=== PATIENT | male | born 1955 | race African-American/Black ===

== ENCOUNTER 2016-05-27 20:00 | Inpatient (IN) | payer OTHER ==
[2016-05-27 20:44] VITALS: BMI 36.9
--- NOTE | 2016-05-27 20:48 | HP ---
CIWA Score - CIWA Score Nausea/Vomitin-Mild Nausea/No Vomiting Muscle Tremors: 4-Moderate,w/Arms Extend Anxiety: 4-Mod. Anxious/Guarded Agitation: 4-Moderately Restless Paroxysmal Sweats: 1-Minimal Palms Moist Orientation: 3-Disoriented Date>2 days Tacttile Disturbances: 0-None Auditory Disturbances: 0-None Visual Disturbances: 0-None Headache: 2-Mild CIWA-Ar Total Score: 19 Admission [facility] - HPI Chief Complaint: withdrawal sx Allergies/Adverse Reactions: Allergies Allergy/AdvReac Type Severity Reaction Status Date / Time morphine Allergy Verified 05/27/16 20:48 History of Present Illness: 60 years old male with long history of alcohol dependence, hypertension hypercholesterolemia, seizure and depression is admitted to detox patient was treated alcohol intoxication at [facility] today released to [facility] for alcohol detox Exam Limitations: No Limitations - Ebola screening Have you traveled outside of the country in the last 21 days: No Have you had contact with anyone from an Ebola affected area: No Have you been sick,other than usual withdrawal symptoms: No Do you have a fever: No - Review of Systems Constitutional: Chills, Changes in sleep, Weight Stable EENT: reports: Other (eye glasses) Respiratory: reports: No Symptoms reported Cardiac: reports: No Symptoms Reported GI: reports: Nausea, Poor Fluid Intake, Abdominal cramping : reports: No Symptoms Reported Musculoskeletal: reports: Back Pain, Joint Pain, Muscle Pain, Other (knees) Integumentary: reports: No Symptoms Reported Neuro: reports: Seizure (last episode 11/2015), Tremors Endocrine: reports: No Symptoms Reported Hematology: reports: No Symptoms Reported Psychiatric: reports: Judgement Intact, Depressed Other Systems: Reviewed and Negative Patient History - Patient Medical History Hx Anemia: No Hx Asthma: No Hx Chronic Obstructive Pulmonary Disease (COPD): No Hx Cancer: No Hx Cardiac Disorders: No Hx Congestive Heart Failure: No Hx Hypertension: Yes Hx Hypercholesterolemia: Yes Hx Pacemaker: No HX Cerebrovascular Accident: No Hx Seizures: Yes (1984) Hx Dementia: No Hx Diabetes: No Hx Gastrointestinal Disorders: No Hx Liver Disease: No Hx Genitourinary Disorders: No Hx Sexually Transmitted Disorders: No Hx Renal Disease (ESRD): No Hx Thyroid Disease: No Hx Human Immunodeficiency Virus (HIV): No Hx Hepatitis C: No Hx Depression: Yes Hx Suicide Attempt: No Hx Bipolar Disorder: No Hx Schizophrenia: No - Patient Surgical History Past Surgical History: No - PPD History Previous Implant?: Yes Documented Results: Negative w/o proof Implanted On Prior [facility] Admission?: No PPD to be Administered?: Yes - Smoking Cessation Smoking history: Never smoked Have you smoked in the past 12 months: No Cigars Per Day: 0 Hx Chewing Tobacco Use: No Initiated information on smoking cessation: No - Substance & Tx. History Hx Alcohol Use: Yes Hx Substance Use: No Substance Use Type: Alcohol Hx Substance Use Treatment: Yes - Substances Abused Alcohol Route: Oral Frequency: Daily Amount used: keshawn arriaga Age of first use: 12 Date of Last Use: 05/27/16 Family Disease History - Family Disease History Family Disease History: Heart Disease: Brother (2014), Other: Father ( ) , Mother (mental illness) Admission Physical Exam S - Physical General Appearance: Yes: Nourished, Appropriately Dressed, Moderate Distress, Alcohol on Breath, Tremorous, Irritable, Sweating, Anxious HEENTM: Yes: Hearing grossly Normal, Normal ENT Inspection, Normocephalic, Normal Voice Respiratory: Yes: Chest Non-Tender, Lungs Clear, Normal Breath Sounds, No Respiratory Distress, No Accessory Muscle Use Neck: Yes: Supple, Trachea in good position Breast: Yes: Breasts Symetrical Cardiology: Yes: Regular Rhythm, Regular Rate, S1, S2 Abdominal: Yes: Non Tender, Soft Genitourinary: Yes: Within Normal Limits Back: Yes: Normal Inspection Musculoskeletal: Yes: full range of Motion, Gait Steady, Back pain, Muscle Pain (knees) Extremities: Yes: Non-Tender, Tremors, Swelling (knees) Neurological: Yes: Alert, Motor Strength 5/5 (cane), Depressed Affect Integumentary: Yes: Warm Lymphatic: Yes: Within Normal Limits - Diagnostic (1) Alcohol dependence with uncomplicated withdrawal Current Visit: Yes Status: Acute (2) Hypertension Current Visit: Yes Status: Acute Qualifiers: Hypertension type: essential hypertension Qualified Code(s): I10 - Essential (primary) hypertension (3) Seizure Current Visit: Yes Status: Acute Comment: topamax (4) Major depression Current Visit: Yes Status: Suspected Qualifiers: Major depression recurrence: recurrent Active/Remission status: in partial remission Qualified Code(s): F33.41 - Major depressive disorder, recurrent, in partial remission (5) Weakness of lower extremity Current Visit: Yes Status: Chronic Qualifiers: Laterality: bilateral Qualified Code(s): M62.81 - Muscle weakness ( generalized) Comment: cane Cleared for Admission [facility] - Detox or Rehab [facility] Level of Care: Medically Managed Detox Regimen/Protocol: Librium [facility] Breath Alcohol Content Breath Alcohol Content: 0.252 Vital Signs - Vital Signs Vital Signs Refused: No Temperature: 96 F Temperature Source: Oral Pulse Rate: 74 Respiratory Rate: 20 Blood Pressure: 127/75 BP Location: Left Arm Blood Pressure Position: Sitting - Height Height: 5 ft 9 in - Weight Weight: 250 lb Body Mass Index (BMI): 36.9 - Bowel Function Bowel Movement: Yes
[2016-05-27] MEDS ORDERED: LOPERAMIDE HCL 2 MG CAPSULE PO PRN (21:00)
[2016-05-27] MEDS ORDERED: chlordiazePOXIDE HCL 25 MG CAPSULE PO PRN (21:00)
[2016-05-27] MEDS ORDERED: hydrOXYzine PAMOATE 50 MG CAPSULE (FP) PO PRN (21:00)
[2016-05-27] MEDS ORDERED: IBUPROFEN 400 MG TABLET (FP) PO PRN (21:00)
[2016-05-27] MEDS ORDERED: ACETAMINOPHEN 325 MG TABLET (FP) PO PRN (21:00)
[2016-05-27] MEDS ORDERED: MENTHOL/PHENOL 1 EACH UD MM PRN (21:00)
[2016-05-27] MEDS ORDERED: chlordiazePOXIDE HCL 25 MG CAPSULE PO ONE (21:00)
[2016-05-27] MEDS ORDERED: P-EPHED 60MG/TRIPROLIDI 2.5MG TABLET PO PRN (21:00)
[2016-05-27] MEDS ORDERED: MAGNESIUM CITRATE 300 ML BOTTLE PO PRN (21:00)
[2016-05-27] MEDS ORDERED: MAG HYDROX/AL HYDROX/SIMETH 30 ML UNIT-DOSE CUP PO PRN (21:00)
[2016-05-27] MEDS ORDERED: MAGNESIUM HYDROX 2400MG/30ML ORAL SUSPENSION 30 ML CUP PO PRN (21:00)
[2016-05-27] MEDS ORDERED: guaiFENesin/D-METHORPHAN HB 10 ML UNIT-DOSE CUPS PO PRN (21:00)
[2016-05-27] MEDS ORDERED: cloNIDine HCL 0.1 MG TABLET PO PRN (21:12)
[2016-05-27] MEDS: TOPIRAMATE 25 MG TABLET (FP) PO SCH (22:53)
[2016-05-27] MEDS: chlordiazePOXIDE HCL 25 MG CAPSULE PO SCH (22:53)
[2016-05-27] MEDS: THIAMINE HCL 100 MG TABLET (FP) PO SCH (22:53)
[2016-05-27] MEDS: diphenhydrAMINE HCL 50 MG CAPSULE PO PRN (22:54)
[2016-05-27 23:16] LABS: URINE APPEARANCE CLEAR; URINE BILIRUBIN NEGATIVE (NEGATIVE); URINE BLOOD NEGATIVE (NEGATIVE); URINE COLOR YELLOW; URINE GLUCOSE (UA) NEGATIVE (NEGATIVE); URINE KETONE NEGATIVE (NEGATIVE); URINE LEUK ESTERASE NEGATIVE (NEGATIVE); URINE NITRITE NEGATIVE (NEGATIVE); URINE PROTEIN NEGATIVE (NEGATIVE); URINE UROBILINOGEN NEGATIVE E.U./dl (0.2-1.0)
[2016-05-28] MEDS: chlordiazePOXIDE HCL 25 MG CAPSULE PO SCH ×4 (06:04→22:26)
[2016-05-28] MEDS: TOPIRAMATE 25 MG TABLET (FP) PO SCH ×3 (06:30→22:55)
--- NOTE | 2016-05-28 07:33 | CONSULT ---
[id number] [facility] Identifying data: This is 60 years old male with history ob Bipolar disorder, history of psychiatric hospitalization, intoxicated with: Alcohol Substance Abuse History: - Smoking Cessation. Smoking history: Never smoked. Have you smoked in the past 12 months: No. Cigars Per Day: 0. Hx Chewing Tobacco Use: No. Initiated information on smoking cessation: No. - Substance & Tx. History. Hx Alcohol Use: Yes. Hx Substance Use: No. Substance Use Type : Alcohol. Hx Substance Use Treatment: Yes. - Substances Abused. Alcohol. Route: Oral. Frequency: Daily. Amount used: keshawn arriaga. Age of first use : 12. Date of Last Use: 05/27/16 Medical History: Asthma, HTN, Seizure history Psychiatric History: Sanya haider tocarry Bipolar dsioprdsdr with nost recent psychiatric admission at [facility] on 2014 fro safety, reports currently on: Trazodone 100mg poqs. Zoloft 50mg poqd. Thopamax 25mg po tid Physical/Sexual Abuse/Trauma History: Denies Additional Comment: Trazodone 100mg poqs. Zoloft 50mg poqd. Thopamax 25mg po tid Mental Status Exam - Mental Status Exam Alert and Oriented to: Person Cognitive Function: Fair Patient Appearance: Unkempt Mood: Sad Affect: Flat Patient Behavior: Sedated Speech Pattern: Delayed Voice Loudness: Mildly Soft/Quiet Thought Process: Circumstantial Thought Disorder: Being Controlled Hallucinations: Denies Suicidal Ideation: Denies Homicidal Ideation: Denies Insight/Judgement: Fair Sleep: Difficulty falling asleep Appetite: Fair Muscle strength/Tone: Mild Hypotonicity Gait/Station: Shuffling Additional Comments: Trazodone 100mg poqs. Zoloft 50mg poqd. Thopamax 25mg po tid Psychiatric Findings - Problem List ([place] 1, 2,3) (1) Alcohol dependence with uncomplicated withdrawal Current Visit: Yes Status: Acute (2) Major depression Current Visit: Yes Status: Suspected Qualifiers: Major depression recurrence: recurrent Active/Remission status: in partial remission Qualified Code(s): F33.41 - Major depressive disorder, recurrent, in partial remission - Initial Treatment Plan Initial Treatment Plan: Trazodone 100mg poqs. Zoloft 50mg poqd. Thopamax 25mg po tid
--- NOTE | 2016-05-28 10:03 | PN ---
S CIWA - CIWA Score Nausea/Vomitin Muscle Tremors: 3 Anxiety: 3 Agitation: 3 Paroxysmal Sweats: 1-Minimal Palms Moist Orientation: 0-Oriented Tacttile Disturbances: 1-Very Mild Itch/Numbness Auditory Disturbances: 1-Very Mild Visual Disturbances: 1-Very Mild Sensitivity Headache: 2-Mild CIWA-Ar Total Score: 18 [facility] Progress Note (SOAP) Subjective: ALERT,IRRITABLE,ANXIOUS,INTERRUPTED SLEEP,TREMOR Objective: 05/28/16 10:01 Vital Signs Temperature 97.8 F 05/28/16 06:11 Pulse Rate 89 05/28/16 09:59 Respiratory Rate 20 05/28/16 09:59 Blood Pressure 140/83 05/28/16 09:59 O2 Sat by Pulse Oximetry (%) EKG NR,NORMAL ECG Laboratory Last Values Urine Color Yellow 05/27/16 22:00 Urine Appearance Clear 05/27/16 22:00 Urine pH 5.0 (5.0-8.0) 05/27/16 22:00 Ur Specific [place] 1.020 (1.001-1.035) 05/27/16 22:00 Urine Protein Negative (NEGATIVE) 05/27/16 22:00 Urine Glucose (UA) Negative (NEGATIVE) 05/27/16 22:00 Urine Ketones Negative (NEGATIVE) 05/27/16 22:00 Urine Blood Negative (NEGATIVE) 05/27/16 22:00 Urine Nitrite Negative (NEGATIVE) 05/27/16 22:00 Urine Bilirubin Negative (NEGATIVE) 05/27/16 22:00 Urine Urobilinogen Negative E.U./dl (0.2-1.0) 05/27/16 22:00 Ur Leukocyte Esterase Negative (NEGATIVE) 05/27/16 22:00 LABS PENDING Assessment: 05/28/16 10:02 WITHDRAWAL SYMPTOM Plan: CONTINUE DETOX
[2016-05-28] MEDS: PRENATAL VITAMINS W/ FOLIC ACID TABLET (FP) PO SCH (10:32)
[2016-05-28] MEDS: amLODIPine BESYLATE 10 MG TABLET (FP) PO SCH (10:32)
[2016-05-28] MEDS: SERTRALINE HCL 50 MG TABLET (FP) PO SCH (10:32)
[2016-05-28] MEDS: HYDROCHLOROTHIAZIDE 25 MG TABLET (FP) PO SCH (10:32)
[2016-05-28 11:27] LABS: MCH 26.3 pg (25.7-33.7); MCHC 32.8 g/dl (32.0-35.9); MEAN PLT VOLUME 7.9 fl (7.5-11.1); PLATELET COUNT 205 K/MM3 (134-434); RDW 15.8 % (11.9-15.9); WHITE BLOOD COUNT 5.9 K/mm3 (4.0-10.0)
[2016-05-28 11:59] LABS: ALBUMIN 3.2 g/dl (3.4-5.0); ALK PHOS 75 U/L (45-117); ANION GAP 11 (8-16); BILIRUBIN,TOTAL 0.3 mg/dL (0.2-1.0); CALCIUM 8.1 mg/dL (8.5-10.1); CO2 29 mmol/L (21-32); CREATININE 0.9 mg/dL (0.7-1.3); GLUCOSE,RANDOM 96 mg/dL (74-106); SGOT/AST 25 U/L (15-37); SGPT/ALT 28 U/L (12-78); TOT PROT 6.6 g/dl (6.4-8.2)
[2016-05-28] MEDS ORDERED: TOPIRAMATE 25 MG TABLET (FP) PO SCH (14:00)
[2016-05-28] MEDS: diphenhydrAMINE HCL 50 MG CAPSULE PO PRN (22:26)
[2016-05-28] MEDS: THIAMINE HCL 100 MG TABLET (FP) PO SCH (22:26)
[2016-05-28] MEDS: POTASSIUM CHLORIDE TABS 20 MEQ TABLET.ER (FP) PO SCH (22:26)
[2016-05-28] MEDS: traZODone HCL 100 MG TABLET (FP) PO SCH (22:26)
[2016-05-28] MEDS ORDERED: BACITRACIN 0.9 GM PACKET TP PRN (23:17)
--- NOTE | 2016-05-28 23:28 | PN ---
[facility] Progress Note Note: K+=3.2 K-Dur 20 meq BID ordered. Re-order K+ levels Will continue to monitor.
[2016-05-29] MEDS: chlordiazePOXIDE HCL 25 MG CAPSULE PO SCH ×3 (05:39→16:53)
[2016-05-29] MEDS: TOPIRAMATE 25 MG TABLET (FP) PO SCH ×3 (05:40→22:18)
[2016-05-29] MEDS: SERTRALINE HCL 50 MG TABLET (FP) PO SCH (10:26)
[2016-05-29] MEDS: amLODIPine BESYLATE 10 MG TABLET (FP) PO SCH (10:26)
[2016-05-29] MEDS: POTASSIUM CHLORIDE TABS 20 MEQ TABLET.ER (FP) PO SCH ×2 (10:26→22:18)
[2016-05-29] MEDS: HYDROCHLOROTHIAZIDE 25 MG TABLET (FP) PO SCH (10:26)
[2016-05-29] MEDS: PRENATAL VITAMINS W/ FOLIC ACID TABLET (FP) PO SCH (10:26)
--- NOTE | 2016-05-29 15:54 | PN ---
[facility] CIWA - CIWA Score Nausea/Vomitin-No Nausea/No Vomiting Muscle Tremors: 3 Anxiety: 3 Agitation: 3 Paroxysmal Sweats: 3 Orientation: 0-Oriented Tacttile Disturbances: 0-None Auditory Disturbances: 0-None Visual Disturbances: 0-None Headache: 0-None Present CIWA-Ar Total Score: 12 S Progress Note (SOAP) Subjective: SWEATING,ANXIETY,TREMORS,INTERRUPTED SLEEP,RESTLESS Objective: 05/29/16 15:53 Vital Signs - 8 hr 05/29/16 10:39 Temperature 97.0 F L Pulse Rate 90 Respiratory 20 Rate Blood Pressure 113/78 Laboratory Tests 05/27/16 05/28/16 05/28/16 22:00 07:30 07:30 WBC 5.9 RBC 4.74 Hgb 12.4 Hct 38.0 MCV 80.0 MCHC 32.8 RDW 15.8 Plt Count 205 MPV 7.9 Sodium 148 H Potassium 3.2 L Chloride 108 H Carbon Dioxide 29 Anion Gap 11 BUN 16 Creatinine 0.9 Creat Clearance w eGFR > 60 Random Glucose 96 Calcium 8.1 L Total Bilirubin 0.3 AST 25 ALT 28 Alkaline Phosphatase 75 Total Protein 6.6 Albumin 3.2 L Urine Color Yellow Urine Appearance Clear Urine pH 5.0 Ur Specific [place] 1.020 Urine Protein Negative Urine Glucose (UA) Negative Urine Ketones Negative Urine Blood Negative Urine Nitrite Negative Urine Bilirubin Negative Urine Urobilinogen Negative Ur Leukocyte Esterase Negative RPR Titer 05/28/16 07:30 WBC RBC Hgb Hct MCV MCHC RDW Plt Count MPV Sodium Potassium Chloride Carbon Dioxide Anion Gap BUN Creatinine Creat Clearance w eGFR Random Glucose Calcium Total Bilirubin AST ALT Alkaline Phosphatase Total Protein Albumin Urine Color Urine Appearance Urine pH Ur Specific [place] Urine Protein Urine Glucose (UA) Urine Ketones Urine Blood Urine Nitrite Urine Bilirubin Urine Urobilinogen Ur Leukocyte Esterase RPR Titer Nonreactive LABS NOTED,K+ 3.2 K-DUR STARTED Assessment: 05/29/16 15:53 WITHDRAWAL SX. HYPOKALEMIA Plan: CONTINUE DETOX
[2016-05-29] MEDS: chlordiazePOXIDE 5 MG CAPSULE PO SCH (22:17)
[2016-05-29] MEDS: THIAMINE HCL 100 MG TABLET (FP) PO SCH (22:17)
[2016-05-29] MEDS: traZODone HCL 100 MG TABLET (FP) PO SCH (22:18)
[2016-05-29] MEDS: diphenhydrAMINE HCL 50 MG CAPSULE PO PRN (22:19)
[2016-05-30] MEDS: chlordiazePOXIDE 5 MG CAPSULE PO SCH ×3 (05:35→17:48)
[2016-05-30] MEDS: TOPIRAMATE 25 MG TABLET (FP) PO SCH ×3 (05:36→22:45)
--- NOTE | 2016-05-30 10:27 | PN ---
[facility] Progress Note (SOAP) Subjective: SWEATING,INTERRUPTED SLEEP,RESTLESS. Objective: 05/30/16 10:26 Vital Signs - 8 hr 05/30/16 05/30/16 05/30/16 03:30 06:13 10:12 Temperature 97.8 F 97.3 F L Pulse Rate 81 83 Respiratory 18 18 18 Rate Blood Pressure 120/79 128/87 Laboratory Tests 05/27/16 05/28/16 05/28/16 22:00 07:30 07:30 WBC 5.9 RBC 4.74 Hgb 12.4 Hct 38.0 MCV 80.0 MCHC 32.8 RDW 15.8 Plt Count 205 MPV 7.9 Sodium 148 H Potassium 3.2 L Chloride 108 H Carbon Dioxide 29 Anion Gap 11 BUN 16 Creatinine 0.9 Creat Clearance w eGFR > 60 Random Glucose 96 Calcium 8.1 L Total Bilirubin 0.3 AST 25 ALT 28 Alkaline Phosphatase 75 Total Protein 6.6 Albumin 3.2 L Urine Color Yellow Urine Appearance Clear Urine pH 5.0 Ur Specific [place] 1.020 Urine Protein Negative Urine Glucose (UA) Negative Urine Ketones Negative Urine Blood Negative Urine Nitrite Negative Urine Bilirubin Negative Urine Urobilinogen Negative Ur Leukocyte Esterase Negative RPR Titer 05/28/16 07:30 WBC RBC Hgb Hct MCV MCHC RDW Plt Count MPV Sodium Potassium Chloride Carbon Dioxide Anion Gap BUN Creatinine Creat Clearance w eGFR Random Glucose Calcium Total Bilirubin AST ALT Alkaline Phosphatase Total Protein Albumin Urine Color Urine Appearance Urine pH Ur Specific [place] Urine Protein Urine Glucose (UA) Urine Ketones Urine Blood Urine Nitrite Urine Bilirubin Urine Urobilinogen Ur Leukocyte Esterase RPR Titer Nonreactive LABS NOTED,K-DUR GIVEN Assessment: 05/30/16 10:26 WITHDRAWAL SX. Plan: CONTINUE DETOX
[2016-05-30] MEDS: SERTRALINE HCL 50 MG TABLET (FP) PO SCH (10:38)
[2016-05-30] MEDS: PRENATAL VITAMINS W/ FOLIC ACID TABLET (FP) PO SCH (10:38)
[2016-05-30] MEDS: amLODIPine BESYLATE 10 MG TABLET (FP) PO SCH (10:38)
[2016-05-30] MEDS: POTASSIUM CHLORIDE TABS 20 MEQ TABLET.ER (FP) PO SCH ×2 (10:38→22:45)
[2016-05-30] MEDS: HYDROCHLOROTHIAZIDE 25 MG TABLET (FP) PO SCH (10:39)
[2016-05-30] MEDS: chlordiazePOXIDE HCL 10 MG CAPSULE PO SCH (22:45)
[2016-05-30] MEDS: traZODone HCL 100 MG TABLET (FP) PO SCH (22:45)
[2016-05-30] MEDS: THIAMINE HCL 100 MG TABLET (FP) PO SCH (22:45)
[2016-05-31] MEDS: chlordiazePOXIDE HCL 10 MG CAPSULE PO SCH ×2 (05:46→11:42)
[2016-05-31] MEDS: TOPIRAMATE 25 MG TABLET (FP) PO SCH ×2 (05:47→16:29)
[2016-05-31 09:44] VITALS: BP 112/73; PULSE 91; TEMP 96.3
[2016-05-31] MEDS: POTASSIUM CHLORIDE TABS 20 MEQ TABLET.ER (FP) PO SCH (11:41)
[2016-05-31] MEDS: SERTRALINE HCL 50 MG TABLET (FP) PO SCH (11:41)
[2016-05-31] MEDS: PRENATAL VITAMINS W/ FOLIC ACID TABLET (FP) PO SCH (11:41)
[2016-05-31] MEDS: HYDROCHLOROTHIAZIDE 25 MG TABLET (FP) PO SCH (11:41)
[2016-05-31] MEDS: amLODIPine BESYLATE 10 MG TABLET (FP) PO SCH (11:41)
--- NOTE | 2016-05-31 15:34 | DS ---
[facility] Detox Discharge Summary Admission Date: 05/27/16 Discharge Date: 05/31/16 - History Present History: Alcohol Dependence Additional Comments: ADVISED PT. TO FOLLOW-UP WITH PMD / REHAB MEDICAL PROVIDER AFTER DETOX DISCHARGE FOR GENERAL MEDICAL ASSESSMENT. Pertinent Past History: Hypertension, History of seizures. - Physical Exam Results Vital Signs: Vital Signs Temperature 96.3 F L 05/31/16 09:44 Pulse Rate 91 H 05/31/16 09:44 Respiratory Rate 18 05/31/16 09:44 Blood Pressure 112/73 05/31/16 09:44 O2 Sat by Pulse Oximetry (%) Pertinent Admission Physical Exam Findings: WITHDRAWAL SYMPTOMS. Laboratory Last Values WBC 5.9 K/mm3 (4.0-10.0) 05/28/16 07:30 RBC 4.74 M/mm3 (4.00-5.60) 05/28/16 07:30 Hgb 12.4 GM/dL (11.7-16.9) 05/28/16 07:30 Hct 38.0 % (35.4-49) 05/28/16 07:30 MCV 80.0 fl (80-96) 05/28/16 07:30 MCHC 32.8 g/dl (32.0-35.9) 05/28/16 07:30 RDW 15.8 % (11.9-15.9) 05/28/16 07:30 Plt Count 205 K/MM3 (134-434) 05/28/16 07:30 MPV 7.9 fl (7.5-11.1) 05/28/16 07:30 Sodium 148 mmol/L (136-145) H 05/28/16 07:30 Potassium 3.8 mmol/L (3.5-5.1) 05/30/16 08:00 Chloride 108 mmol/L (98-107) H 05/28/16 07:30 Carbon Dioxide 29 mmol/L (21-32) 05/28/16 07:30 Anion Gap 11 (8-16) 05/28/16 07:30 BUN 16 mg/dL (7-18) 05/28/16 07:30 Creatinine 0.9 mg/dL (0.7-1.3) 05/28/16 07:30 Creat Clearance w eGFR > 60 (>60) 05/28/16 07:30 Random Glucose 96 mg/dL (74-106) 05/28/16 07:30 Calcium 8.1 mg/dL (8.5-10.1) L 05/28/16 07:30 Total Bilirubin 0.3 mg/dL (0.2-1.0) 05/28/16 07:30 AST 25 U/L (15-37) 05/28/16 07:30 ALT 28 U/L (12-78) 05/28/16 07:30 Alkaline Phosphatase 75 U/L (45-117) 05/28/16 07:30 Total Protein 6.6 g/dl (6.4-8.2) 05/28/16 07:30 Albumin 3.2 g/dl (3.4-5.0) L 05/28/16 07:30 Urine Color Yellow 05/27/16 22:00 Urine Appearance Clear 05/27/16 22:00 Urine pH 5.0 (5.0-8.0) 05/27/16 22:00 Ur Specific [place] 1.020 (1.001-1.035) 05/27/16 22:00 Urine Protein Negative (NEGATIVE) 05/27/16 22:00 Urine Glucose (UA) Negative (NEGATIVE) 05/27/16 22:00 Urine Ketones Negative (NEGATIVE) 05/27/16 22:00 Urine Blood Negative (NEGATIVE) 05/27/16 22:00 Urine Nitrite Negative (NEGATIVE) 05/27/16 22:00 Urine Bilirubin Negative (NEGATIVE) 05/27/16 22:00 Urine Urobilinogen Negative E.U./dl (0.2-1.0) 05/27/16 22:00 Ur Leukocyte Esterase Negative (NEGATIVE) 05/27/16 22:00 RPR Titer Nonreactive (NONREACTIVE) 05/28/16 07:30 LABS NOTED. - Treatment Hospital Course: Detox Protocol Followed, Detoxed Safely, Responded well, Discharged Condition Good, Rehab Referral Accepted - Medication Discharge Medications: Ambulatory Orders Amlodipine Besylate [Norvasc -] 10 mg PO DAILY 05/27/16 Hydrochlorothiazide 25 mg PO DAILY 05/27/16 Sertraline HCl [Zoloft -] 50 mg PO DAILY 05/27/16 Topiramate [Topamax -] 25 mg PO TID #90 tablet 05/28/16 Trazodone HCl 100 mg PO HS #30 tablet 05/28/16 - Diagnosis (1) Alcohol dependence with uncomplicated withdrawal Current Visit: Yes Status: Acute (2) Hypertension Current Visit: Yes Status: Chronic Qualifiers: Hypertension type: essential hypertension Qualified Code(s): I10 - Essential (primary) hypertension (3) Seizure Current Visit: Yes Status: Chronic (4) Weakness of lower extremity Current Visit: Yes Status: Chronic Qualifiers: Laterality: bilateral Qualified Code(s): M62.81 - Muscle weakness ( generalized) (5) Major depression Current Visit: Yes Status: Suspected Qualifiers: Major depression recurrence: recurrent Active/Remission status: in partial remission Qualified Code(s): F33.41 - Major depressive disorder, recurrent, in partial remission - AMA Did Patient Leave Against Medical Advice: No
== END 2016-05-31 14:40 | disposition other institution (70) | DRG 775 ==
LOC: YASAS 20:00 → Y3N 21:39
PROVIDERS: ADMIT Internal Medicine; ATTEND Internal Medicine
PROC: HZ2ZZZZ Detoxification Services for Substance Abuse Treatment (ICD-10-PCS; principal; 2016-05-27)
DX: F10.230 Alcohol dependence with withdrawal, uncomplicated (principal); F33.41 Major depressive disorder, recurrent, in partial remission; E87.6 Hypokalemia; E78.00 Pure hypercholesterolemia, unspecified; I10 Essential (primary) hypertension; M62.81 Muscle weakness (generalized); G40.909 Epilepsy, unspecified, not intractable, without status epilepticus; Z59.0 Homelessness
CPT/HCPCS: 36415; 80053; 81003; 84132; 85027; 86593; 93005; 93010

== ENCOUNTER 2016-05-31 13:23 | Inpatient (IN) | payer OTHER ==
[2016-05-31 14:40] VITALS: BMI 37.3
--- NOTE | 2016-05-31 15:58 | HP ---
[facility] Rehab Assess/Revision - Admission History Admitted to Rehab from: [facility] Date of Admission to Rehab: 05/31/16 - Vital signs Vital Signs: Vital Signs Period Temp Pulse Resp BP Sys/Hylton Pulse Ox Last 24 Hr 97.7 F-97.7 F 92-92 20-20 109-109/68-68 - Findings Detox History & Physical reviewed: Yes Concur with findings: Yes
[2016-05-31] MEDS ORDERED: MAGNESIUM CITRATE 300 ML BOTTLE PO PRN (16:00)
[2016-05-31] MEDS ORDERED: guaiFENesin/D-METHORPHAN HB 10 ML UNIT-DOSE CUPS PO PRN (16:00)
[2016-05-31] MEDS ORDERED: IBUPROFEN 400 MG TABLET (FP) PO PRN (16:00)
[2016-05-31] MEDS ORDERED: MAG HYDROX/AL HYDROX/SIMETH 30 ML UNIT-DOSE CUP PO PRN (16:00)
[2016-05-31] MEDS ORDERED: ACETAMINOPHEN 325 MG TABLET (FP) PO PRN (16:00)
[2016-05-31] MEDS ORDERED: MENTHOL/PHENOL 1 EACH UD MM PRN (16:00)
[2016-05-31] MEDS ORDERED: LOPERAMIDE HCL 2 MG CAPSULE PO PRN (16:00)
[2016-05-31] MEDS ORDERED: MAGNESIUM HYDROX 2400MG/30ML ORAL SUSPENSION 30 ML CUP PO PRN (16:00)
[2016-05-31] MEDS: TOPIRAMATE 25 MG TABLET (FP) PO SCH (22:27)
[2016-05-31] MEDS: traZODone HCL 100 MG TABLET (FP) PO SCH (22:27)
[2016-05-31] MEDS: THIAMINE HCL 100 MG TABLET (FP) PO SCH (22:27)
[2016-06-01] MEDS: TOPIRAMATE 25 MG TABLET (FP) PO SCH ×3 (06:38→21:43)
[2016-06-01] MEDS: HYDROCHLOROTHIAZIDE 25 MG TABLET (FP) PO SCH (10:07)
[2016-06-01] MEDS: PRENATAL VITAMINS W/ FOLIC ACID TABLET (FP) PO SCH (10:07)
[2016-06-01] MEDS: SERTRALINE HCL 50 MG TABLET (FP) PO SCH (10:07)
[2016-06-01] MEDS: amLODIPine BESYLATE 10 MG TABLET (FP) PO SCH (10:07)
--- NOTE | 2016-06-01 18:52 | HP ---
Psychiatrist Admission - Data Date of interview: 06/01/16 Admission source: Transfer from [address] [place] [address] Identifying data: First admission to [address] for this 60 y/o AA male transitioning to rehabilitation treatment for alcohol dependence (detox completed on [address] [place] [address]).Patient is ,a father of four,homeless,unemployed and supported on Welfare. Medical History: Significant for a history of carpal tunnel syndrome,low back pain,benign prostatic hyperplasia (BPH),hypercholesterolemia and withdrawal- related seizures. Psychiatric History: Patient admits to a history of 4-5 psychiatric hospitalizations in his lifetime.He is known to [facility] (most recent admission),[facility] ([place]) and [facility] in [place].Diagnosed with MDD and Bipolar Disorder.Mr Funk gets his outpatient psychiatric services at [facility] (Dr Will Miller) in [facility].No reported history of suicide attempts.Medications consist of zoloft 50 mg/daily + trazodone 50 mg/hs + topamax 25 mg po tid. Physical/Sexual Abuse/Trauma History: Patient denies. Additional Comment: - Smoking Cessation. Smoking history: Never smoked. Have you smoked in the past 12 months: No. Cigars Per Day: 0. Hx Chewing Tobacco Use: No. Initiated information on smoking cessation: No. - Substance & Tx. History. Hx Alcohol Use: Yes. Hx Substance Use: No. Substance Use Type: Alcohol. Hx Substance Use Treatment: Yes. - Substances Abused. Alcohol. Route: Oral. Frequency: Daily. Amount used: gallon volka. Age of first use: 12. Date of Last Use: 05/27/16. Confirmed by the patient. Vital Signs: Vital Signs - 24 hr 06/01/16 06/01/16 06/01/16 03:30 06:30 10:00 Temperature 97.8 F Pulse Rate 94 H 86 Respiratory 18 20 Rate Blood Pressure 119/71 131/73 Allergies/Adverse Reactions: Allergies Allergy/AdvReac Type Severity Reaction Status Date / Time morphine Allergy Intermediate Rash Verified 05/31/16 14:12 - Substance Abuse/Tx History Hx Alcohol Use: Yes Hx Substance Use: Yes (alcohol) Substance Use Type: Alcohol Hx Substance Use Treatment: Yes - Admission Criteria Previous failed treatment: Yes Poor recovery environment: Yes Comorbidities: Yes Lacks judgement: Yes Mental Status Exam - Mental Status Exam Alert and Oriented to: Time, Place, Person Cognitive Function: Good Patient Appearance: Well Groomed (short,obese) Mood: Hopeful, Euthymic Affect: Appropriate, Normal Range Patient Behavior: Talkative, Appropriate, Cooperative Speech Pattern: Clear, Appropriate Voice Loudness: Normal Thought Process: Intact, Goal Oriented Thought Disorder: Not Present Hallucinations: Denies Suicidal Ideation: Denies Homicidal Ideation: Denies Insight/Judgement: Fair Sleep: Fair Appetite: Good Muscle strength/Tone: Normal Gait/Station: Normal Psychiatric Findings - Problem List ([place] 1, 2,3) (1) Alcohol dependence Current Visit: Yes Status: Acute (2) Major depression Current Visit: Yes Status: Chronic Qualifiers: Major depression recurrence: recurrent Active/Remission status: in partial remission Qualified Code(s): F33.41 - Major depressive disorder, recurrent, in partial remission (3) Bipolar disorder Current Visit: Yes Status: Chronic Comment: By history. (4) Hypertension Current Visit: Yes Status: Chronic Qualifiers: Hypertension type: essential hypertension Qualified Code(s): I10 - Essential (primary) hypertension (5) Weakness of lower extremity Current Visit: No Status: Chronic Qualifiers: Laterality: bilateral Qualified Code(s): M62.81 - Muscle weakness ( generalized) Comment: [place] (6) Insomnia Current Visit: Yes Status: Acute - Initial Treatment Plan Initial Treatment Plan: Psychoeducation.Support groups.Medications as per orders.Side effects/benefits discussed with patient.He is in agreement with this careplan.Monitor progress.
[2016-06-01] MEDS: THIAMINE HCL 100 MG TABLET (FP) PO SCH (21:42)
[2016-06-01] MEDS: traZODone HCL 100 MG TABLET (FP) PO SCH (21:42)
[2016-06-02] MEDS: TOPIRAMATE 25 MG TABLET (FP) PO SCH ×3 (06:24→21:26)
[2016-06-02] MEDS ORDERED: hydrOXYzine PAMOATE 50 MG CAPSULE (FP) PO PRN (09:40)
[2016-06-02] MEDS: SERTRALINE HCL 50 MG TABLET (FP) PO SCH (09:45)
[2016-06-02] MEDS: HYDROCHLOROTHIAZIDE 25 MG TABLET (FP) PO SCH (09:45)
[2016-06-02] MEDS: PRENATAL VITAMINS W/ FOLIC ACID TABLET (FP) PO SCH (09:45)
[2016-06-02] MEDS: amLODIPine BESYLATE 10 MG TABLET (FP) PO SCH (09:45)
[2016-06-02] MEDS: THIAMINE HCL 100 MG TABLET (FP) PO SCH (21:26)
[2016-06-02] MEDS: traZODone HCL 100 MG TABLET (FP) PO SCH (21:26)
[2016-06-02] MEDS: P-EPHED 60MG/TRIPROLIDI 2.5MG TABLET PO PRN (22:32)
[2016-06-03] MEDS: P-EPHED 60MG/TRIPROLIDI 2.5MG TABLET PO PRN (06:10)
[2016-06-03] MEDS: TOPIRAMATE 25 MG TABLET (FP) PO SCH ×3 (06:47→21:40)
[2016-06-03] MEDS: PRENATAL VITAMINS W/ FOLIC ACID TABLET (FP) PO SCH (09:44)
[2016-06-03] MEDS: HYDROCHLOROTHIAZIDE 25 MG TABLET (FP) PO SCH (09:44)
[2016-06-03] MEDS: amLODIPine BESYLATE 10 MG TABLET (FP) PO SCH (09:44)
[2016-06-03] MEDS: SERTRALINE HCL 50 MG TABLET (FP) PO SCH (09:44)
[2016-06-03] MEDS: traZODone HCL 100 MG TABLET (FP) PO SCH (21:40)
[2016-06-03] MEDS: THIAMINE HCL 100 MG TABLET (FP) PO SCH (21:40)
[2016-06-04] MEDS: TOPIRAMATE 25 MG TABLET (FP) PO SCH ×3 (06:24→21:46)
[2016-06-04] MEDS: P-EPHED 60MG/TRIPROLIDI 2.5MG TABLET PO PRN ×2 (06:25→21:47)
[2016-06-04] MEDS: PRENATAL VITAMINS W/ FOLIC ACID TABLET (FP) PO SCH (10:06)
[2016-06-04] MEDS: HYDROCHLOROTHIAZIDE 25 MG TABLET (FP) PO SCH (10:06)
[2016-06-04] MEDS: amLODIPine BESYLATE 10 MG TABLET (FP) PO SCH (10:06)
[2016-06-04] MEDS: SERTRALINE HCL 50 MG TABLET (FP) PO SCH (10:07)
[2016-06-04] MEDS: THIAMINE HCL 100 MG TABLET (FP) PO SCH (21:46)
[2016-06-04] MEDS: traZODone HCL 100 MG TABLET (FP) PO SCH (21:46)
[2016-06-05] MEDS: TOPIRAMATE 25 MG TABLET (FP) PO SCH ×3 (06:10→21:31)
[2016-06-05] MEDS: P-EPHED 60MG/TRIPROLIDI 2.5MG TABLET PO PRN ×2 (06:11→14:26)
[2016-06-05] MEDS: PRENATAL VITAMINS W/ FOLIC ACID TABLET (FP) PO SCH (09:49)
[2016-06-05] MEDS: amLODIPine BESYLATE 10 MG TABLET (FP) PO SCH (09:49)
[2016-06-05] MEDS: HYDROCHLOROTHIAZIDE 25 MG TABLET (FP) PO SCH (09:49)
[2016-06-05] MEDS: SERTRALINE HCL 50 MG TABLET (FP) PO SCH (09:49)
[2016-06-05] MEDS: THIAMINE HCL 100 MG TABLET (FP) PO SCH (21:31)
[2016-06-05] MEDS: traZODone HCL 100 MG TABLET (FP) PO SCH (21:31)
[2016-06-06] MEDS: TOPIRAMATE 25 MG TABLET (FP) PO SCH ×3 (06:23→21:31)
[2016-06-06] MEDS: P-EPHED 60MG/TRIPROLIDI 2.5MG TABLET PO PRN (06:24)
[2016-06-06] MEDS: amLODIPine BESYLATE 10 MG TABLET (FP) PO SCH (10:52)
[2016-06-06] MEDS: PRENATAL VITAMINS W/ FOLIC ACID TABLET (FP) PO SCH (10:52)
[2016-06-06] MEDS: SERTRALINE HCL 50 MG TABLET (FP) PO SCH (10:52)
[2016-06-06] MEDS: HYDROCHLOROTHIAZIDE 25 MG TABLET (FP) PO SCH (10:52)
[2016-06-06] MEDS: THIAMINE HCL 100 MG TABLET (FP) PO SCH (21:31)
[2016-06-06] MEDS: traZODone HCL 100 MG TABLET (FP) PO SCH (21:31)
[2016-06-07] MEDS: TOPIRAMATE 25 MG TABLET (FP) PO SCH ×3 (06:29→21:51)
[2016-06-07] MEDS: SERTRALINE HCL 50 MG TABLET (FP) PO SCH (10:03)
[2016-06-07] MEDS: PRENATAL VITAMINS W/ FOLIC ACID TABLET (FP) PO SCH (10:03)
[2016-06-07] MEDS: HYDROCHLOROTHIAZIDE 25 MG TABLET (FP) PO SCH (10:03)
[2016-06-07] MEDS: amLODIPine BESYLATE 10 MG TABLET (FP) PO SCH (10:03)
[2016-06-07] MEDS: THIAMINE HCL 100 MG TABLET (FP) PO SCH (21:51)
[2016-06-07] MEDS: P-EPHED 60MG/TRIPROLIDI 2.5MG TABLET PO PRN (21:53)
[2016-06-07] MEDS: traZODone HCL 100 MG TABLET (FP) PO SCH (21:59)
[2016-06-08] MEDS: TOPIRAMATE 25 MG TABLET (FP) PO SCH ×3 (06:47→21:24)
[2016-06-08] MEDS: PRENATAL VITAMINS W/ FOLIC ACID TABLET (FP) PO SCH (09:57)
[2016-06-08] MEDS: HYDROCHLOROTHIAZIDE 25 MG TABLET (FP) PO SCH (09:57)
[2016-06-08] MEDS: amLODIPine BESYLATE 10 MG TABLET (FP) PO SCH (09:57)
[2016-06-08] MEDS: SERTRALINE HCL 50 MG TABLET (FP) PO SCH (09:57)
[2016-06-08] MEDS: P-EPHED 60MG/TRIPROLIDI 2.5MG TABLET PO PRN (10:00)
[2016-06-08] MEDS: traZODone HCL 100 MG TABLET (FP) PO SCH (21:24)
[2016-06-08] MEDS: THIAMINE HCL 100 MG TABLET (FP) PO SCH (21:24)
[2016-06-09] MEDS: TOPIRAMATE 25 MG TABLET (FP) PO SCH ×3 (06:14→21:08)
[2016-06-09] MEDS: amLODIPine BESYLATE 10 MG TABLET (FP) PO SCH (09:58)
[2016-06-09] MEDS: HYDROCHLOROTHIAZIDE 25 MG TABLET (FP) PO SCH (09:58)
[2016-06-09] MEDS: SERTRALINE HCL 50 MG TABLET (FP) PO SCH (09:58)
[2016-06-09] MEDS: PRENATAL VITAMINS W/ FOLIC ACID TABLET (FP) PO SCH (09:58)
[2016-06-09] MEDS: P-EPHED 60MG/TRIPROLIDI 2.5MG TABLET PO PRN (09:59)
[2016-06-09] MEDS: traZODone HCL 100 MG TABLET (FP) PO SCH (21:08)
[2016-06-09] MEDS: diphenhydrAMINE HCL 50 MG CAPSULE PO PRN (21:08)
[2016-06-09] MEDS: THIAMINE HCL 100 MG TABLET (FP) PO SCH (21:08)
[2016-06-10] MEDS: TOPIRAMATE 25 MG TABLET (FP) PO SCH ×3 (06:28→21:34)
[2016-06-10] MEDS: SERTRALINE HCL 50 MG TABLET (FP) PO SCH (10:12)
[2016-06-10] MEDS: HYDROCHLOROTHIAZIDE 25 MG TABLET (FP) PO SCH (10:12)
[2016-06-10] MEDS: PRENATAL VITAMINS W/ FOLIC ACID TABLET (FP) PO SCH (10:12)
[2016-06-10] MEDS: amLODIPine BESYLATE 10 MG TABLET (FP) PO SCH (10:12)
[2016-06-10] MEDS: P-EPHED 60MG/TRIPROLIDI 2.5MG TABLET PO PRN (14:15)
[2016-06-10] MEDS: THIAMINE HCL 100 MG TABLET (FP) PO SCH (21:34)
[2016-06-10] MEDS: traZODone HCL 100 MG TABLET (FP) PO SCH (21:34)
[2016-06-10] MEDS: diphenhydrAMINE HCL 50 MG CAPSULE PO PRN (21:35)
[2016-06-11] MEDS: P-EPHED 60MG/TRIPROLIDI 2.5MG TABLET PO PRN (06:17)
[2016-06-11] MEDS: TOPIRAMATE 25 MG TABLET (FP) PO SCH ×2 (06:18→15:32)
[2016-06-11 07:19] VITALS: TEMP 97.5
--- NOTE | 2016-06-11 07:39 | PN ---
[facility] Progress Note Note: PATIENT ASSESSED AFTER FALLING IN HIS ROOM. HE STATED HE GOT OUT OF BED AND BECOME DIZZY. HE FELL AND HIT HIS HEAD ON THE SIDE OF THE BED. MEMBER IS ALERT , PERRLA, EOMI. HE DENIES N/V AND CHANGES IN VISION. HE REPORTS PAIN TO THE BACK OF HIS HEAD. MACHINE PECAN PICKER GAVE REPORT TO DR. PALOMINO AT [facility] ER. PT. TO BE TRANSFERRED TO THE ER FOR FURTHER EVALUATION. FALL PROTOCOL 1 INITIATED.
[2016-06-11 10:25] VITALS: BP 108/73; PULSE 83
[2016-06-11] MEDS: SERTRALINE HCL 50 MG TABLET (FP) PO SCH (12:00)
[2016-06-11] MEDS: HYDROCHLOROTHIAZIDE 25 MG TABLET (FP) PO SCH (12:00)
[2016-06-11] MEDS: PRENATAL VITAMINS W/ FOLIC ACID TABLET (FP) PO SCH (12:00)
[2016-06-11] MEDS: amLODIPine BESYLATE 10 MG TABLET (FP) PO SCH (12:00)
== END 2016-06-11 19:21 | disposition short-term general hospital (02) | DRG 772 ==
LOC: YASAS 13:23 → Y3W 13:24
PROVIDERS: ADMIT Psychiatry & Neurology Psychiatry; ATTEND Psychiatry & Neurology Psychiatry
PROC: HZ42ZZZ Group Counseling for Substance Abuse Treatment, Cognitive-Behavioral (ICD-10-PCS; principal; 2016-05-31)
DX: F10.20 Alcohol dependence, uncomplicated (principal); F33.41 Major depressive disorder, recurrent, in partial remission; F31.9 Bipolar disorder, unspecified; I10 Essential (primary) hypertension; M62.81 Muscle weakness (generalized); G47.00 Insomnia, unspecified; N40.0 Benign prostatic hyperplasia without lower urinary tract symptoms; E78.00 Pure hypercholesterolemia, unspecified; M54.5 Low back pain; Z86.69 Personal history of other diseases of the nervous system and sense organs; Z59.0 Homelessness; S09.90XA Unspecified injury of head, initial encounter; W18.39XA Other fall on same level, initial encounter; Y93.89 Activity, other specified; Y92.230 Patient room in hospital as the place of occurrence of the external cause

== ENCOUNTER 2016-06-11 09:05 | Inpatient (IN) | payer OTHER ==
--- NOTE | 2016-06-11 09:26 | PDOC ---
History of Present Illness <Lance Arredondo - Last Filed: 06/11/16 11:50> - History of Present Illness Initial Comments: 06/11/16 09:40 The patient is a 60 year old male, with a significant past medical history of alcohol detoxification (05/26/16), who presents to the emergency department via ems from [facility] s/p fall from bed this morning after possible syncopal episode. The patient states he was getting out of bed when he began to feel lightheaded and dizzy. The patient states he can not recall falling to the floor , however, he woke up on the floor. The patient reports experiencing syncope in the past. The patient reports experiencing alcohol withdrawals in April. The patient is a poor historian. He denies chest pain, shortness of breath, headache and dizziness. He denies fever, chills, nausea, vomit, diarrhea and constipation. He denies dysuria, frequency, urgency and hematuria. Allergies: morphine Social history: EtOH abuse <Mary Murphy - Last Filed: 06/11/16 12:09> - General Chief Complaint: Lightheaded Stated Complaint: FALL Past History - Past Medical History Anemia: No Asthma: No Cancer: No Cardiac Disorders: No CVA: No COPD: No CHF: No Dementia: No Diabetes: No GI Disorders: Yes (GERD) Disorders: No HTN: Yes Hypercholesterolemia: Yes Kidney Stones: No Liver Disease: No Psychiatric Problems: Yes (MAJOR DEPRESSIVE DISORDER,BIPOLAR) Suicide Attempt (Hx): No Seizures: Yes (last episode early this year) Thyroid Disease: No - Surgical History Abdominal Surgery: No Appendectomy: No Cardiac Surgery: No Cholecystectomy: No Lung Surgery: No Neurologic Surgery: No Orthopedic Surgery: No - Reproductive History Testicular Surgery: No - Psycho/Social/Smoking Cessation Hx Anxiety: Yes Suicidal Ideation: Yes Smoking History: Never smoked Have you smoked in the past 12 months: No Cigars Per Day: 0 Hx Alcohol Use: Yes Drug/Substance Use Hx: No Substance Use Type: Alcohol Hx Substance Use Treatment: Yes <Lance Arredondo - Last Filed: 06/11/16 11:50> <Mary Murphy - Last Filed: 06/11/16 12:09> - Past Medical History Allergies/Adverse Reactions: Allergies Allergy/AdvReac Type Severity Reaction Status Date / Time morphine Allergy Intermediate Rash Verified 06/11/16 09:19 Home Medications: Ambulatory Orders Amlodipine Besylate [Norvasc -] 10 mg PO DAILY 05/27/16 Hydrochlorothiazide 25 mg PO DAILY 05/27/16 Sertraline HCl [Zoloft -] 50 mg PO DAILY 05/27/16 Topiramate [Topamax -] 25 mg PO TID #90 tablet 05/28/16 Trazodone HCl 100 mg PO HS #30 tablet 05/28/16 Review of Systems - Review of Systems Able to Perform ROS?: Yes Comments:: 06/11/16 09:41 CONSTITUTIONAL: Absent: fever, chills, diaphoresis, generalized weakness, malaise, loss of appetite HEENT: Absent: rhinorrhea, nasal congestion, throat pain, throat swelling, difficulty swallowing, mouth swelling, ear pain, eye pain, visual Changes CARDIOVASCULAR: (+) lightheadedness, Absent: chest pain, syncope, palpitations, irregular heart rate, peripheral edema RESPIRATORY: Absent: cough, shortness of breath, dyspnea with exertion, orthopnea, wheezing, stridor, hemoptysis GASTROINTESTINAL: Absent: abdominal pain, abdominal distension, nausea, vomiting, diarrhea, constipation, melena, hematochezia GENITOURINARY: Absent: dysuria, frequency, urgency, hesitancy, hematuria, flank pain, genital pain MUSCULOSKELETAL: (+) back pain. Absent: myalgia, arthralgia, joint swelling SKIN: Absent: rash, itching, pallor HEMATOLOGIC/IMMUNOLOGIC: Absent: easy bleeding, easy bruising, lymphadenopathy, frequent infections ENDOCRINE: Absent: unexplained weight gain, unexplained weight loss, heat intolerance, cold intolerance NEUROLOGIC: Absent: headache, focal weakness or paresthesias, dizziness, unsteady gait, seizure, mental status changes, bladder or bowel incontinence PSYCHIATRIC: Absent: anxiety, depression, suicidal or homicidal ideation, hallucinations. <Mary Murphy - Last Filed: 06/11/16 12:09> *Physical Exam - Vital Signs Last Vital Signs Temp Pulse Resp BP Pulse Ox 97.5 F L 76 20 107/62 97 06/11/16 09:19 06/11/16 09:19 06/11/16 09:19 06/11/16 09:19 06/11/16 09:19 <Lance Arredondo - Last Filed: 06/11/16 11:50> - Vital Signs Last Vital Signs Temp Pulse Resp BP Pulse Ox 97.5 F L 76 20 107/62 97 06/11/16 09:19 06/11/16 09:19 06/11/16 09:19 06/11/16 09:19 06/11/16 09:19 - Physical Exam Comments: 06/11/16 09:58 GENERAL: Well developed, well nourished. Awake and alert. No acute distress. HEENT: Normocephalic, atraumatic. PERRLA, EOMI. No conjunctival pallor. Sclera are non- icteric. Moist mucous membranes. Oropharynx is clear. NECK: Supple. Full ROM. No JVD. Carotid pulses 2+ and symmetric, without bruits. No thyromegaly. No lymphadenopathy. CARDIOVASCULAR: Regular rate and rhythm. No murmurs, rubs, or gallops. Distal pulses are 2+ and symmetric. PULMONARY: No evidence of respiratory distress. Lungs clear to auscultation bilaterally. No wheezing, rales or rhonchi. ABDOMINAL: Soft. Non-tender. Non-distended. No rebound or guarding. No organomegaly. Normoactive bowel sounds. MUSCULOSKELETAL (+) mild posterior midline tenderness to palpation. Normal range of motion at all joints. No bony deformities. No CVA tenderness. EXTREMITIES: No cyanosis. No clubbing. No edema. No calf tenderness. SKIN: Warm and dry. Normal capillary refill. No rashes. No jaundice. NEUROLOGICAL: Alert, awake, appropriate. Cranial nerves 2-12 intact. Normoreflexic in the upper and lower extremities. Normal speech. Toes are down-going bilaterally. PSYCHIATRIC: Cooperative. Good eye contact. Appropriate mood and affect. <Mary Murphy - Last Filed: 06/11/16 12:09> Heart Score/ECG Review - ECG Intrepretation Comment:: 06/11/16 10:08 EKG was read by Dr. Arredondo at 9:38 Impression: Normal Sinus Rhythm. Incomplete right bundle branch block Vent.Rate 75 bpm OR Interval: 196 ms QTc: 462 ms <Mary Murphy - Last Filed: 06/11/16 12:09> ED Treatment Course - LABORATORY CBC & Chemistry Diagram: 06/11/16 10:12 06/11/16 10:12 <Lance Arredondo - Last Filed: 06/11/16 11:50> - LABORATORY CBC & Chemistry Diagram: 06/11/16 10:12 06/11/16 10:12 - RADIOLOGY Radiograph Interpretation: 06/11/16 10:04 CXR was read by Dr. Deacon Chambers at 10:01 Impression: Cardiac silhouette is upper limits of normal in size. <Mary Murphy - Last Filed: 06/11/16 12:09> Medical Decision Making - Medical Decision Making 06/11/16 12:05 The patient was visited at bedside at 11:20 to discover the patient's PMD for admission, however, the patient's PMD is not affiliated with the hospital. I will admit under medical service admission provider Dr. Boudreaux. Dr. Boudreaux was called at 11:30 and the patient's case was discussed. Dr. Boudreaux requested the admission be placed under Dr. Diaz. I have called Dr. Diaz at his office requesting a callback to inform him of the patient being admitted to the hospital. The social secretary at the office has assured me she will pass the message to Dr. Diaz. <Mary Murphy - Last Filed: 06/11/16 12:09> *DC/Admit/Observation/Transfer - Discharge Dispostion Admit: Yes <Lance Arredondo - Last Filed: 06/11/16 11:50> - Attestations Scribe Attestion: 06/11/16 10:02 Documentation prepared by Mary Murphy, acting as medical affairs director for Lance Arredondo MD, <Mary Murphy - Last Filed: 06/11/16 12:09> Diagnosis at time of Disposition: Syncope Qualifiers: Syncope type: unspecified Qualified Code(s): R55 - Syncope and collapse Head injury Qualifiers: Encounter type: initial encounter Qualified Code(s): S09.90XA - Unspecified injury of head, initial encounter - Discharge Dispostion Condition at time of disposition: Guarded
[2016-06-11] MEDS ORDERED: THIAMINE HCL 200 MG/2 ML VIAL IVPB ONE (09:29)
[2016-06-11] MEDS ORDERED: HEMOQUE TEST 1 EACH EACH ONE (09:43)
[2016-06-11 09:45] VITALS: BMI 36.9
[2016-06-11] MEDS: SODIUM CHLORIDE 1,000 ML IV SCH (09:47)
[2016-06-11 10:32] LABS: BASOPHIL 0.7 % (0-2.0); EOSINOPHIL 6.5 % (0-4.5); MCH 26.4 pg (25.7-33.7); MEAN PLT VOLUME 8.4 fl (7.5-11.1); NEUTROPHILS 57.7 % (42.8-82.8); PLATELET COUNT 216 K/MM3 (134-434); RDW 14.6 % (11.9-15.9); WHITE BLOOD COUNT 6.3 K/mm3 (4.0-10.0)
[2016-06-11 10:54] LABS: ALBUMIN 3.4 g/dl (3.4-5.0); ANION GAP 7 (8-16); CALCIUM 8.2 mg/dL (8.5-10.1); CO2 31 mmol/L (21-32); CREATININE 1.2 mg/dL (0.7-1.3); GLUCOSE,RANDOM 127 mg/dL (74-106); MAGNESIUM 2.7 mg/dL (1.8-2.4); SGPT/ALT 20 U/L (12-78)
[2016-06-11 10:58] LABS: ALK PHOS 89 U/L (45-117); BILIRUBIN,TOTAL 0.6 mg/dL (0.2-1.0); TOT PROT 7.1 g/dl (6.4-8.2); TROPONIN I < 0.02 ng/ml (0.00-0.05)
[2016-06-11 11:20] LABS: SGOT/AST 21 U/L (15-37)
--- NOTE | 2016-06-11 12:28 | EKG ---
Test Reason : Blood Pressure : / mmHG Vent. Rate : 075 BPM Atrial Rate : 075 BPM P-R Int : 196 ms QRS Dur : 102 ms QT Int : 414 ms P-R-T Axes : 046 -15 045 degrees QTc Int : 462 ms NORMAL SINUS RHYTHM INCOMPLETE RIGHT BUNDLE BRANCH BLOCK BORDERLINE ECG NO PREVIOUS ECGS AVAILABLE Confirmed by AROLDO PASCUAL MD ([id number]) on 06/11/2016 12:27:55 PM Referred By: Confirmed By:AROLDO PASCUAL MD
[2016-06-11] MEDS ORDERED: POTASSIUM CHLORIDE TABS 20 MEQ TABLET.ER (FP) PO ONE ×2 (16:05→16:06)
[2016-06-11 17:05] LABS: TROPONIN I < 0.02 ng/ml (0.00-0.05)
--- NOTE | 2016-06-11 17:28 | CONSULT ---
Cardiology Consult (text) - Consultation Consultation Note: CC: syncope 60 year old with a past medical history of HTN, HL, alcohol detoxification (), GERD, MDD/bipolar, seizure, who presents from [facility] s/p syncopal episode. The patient states he was getting out of bed when he began to feel lightheaded and dizzy. The patient states he can not recall falling to the floor, however, he woke up on the floor. The patient reports experiencing similar episode of syncope once before and he regularly has orthostatic symptoms. States he was lying in bed most of the week at detox to avoid interacting with the other patients. No decreased po intake. + nausea since syncope. He denies chest pain, shortness of breath, palps, orthopnea, pnd, le edema, claudication, bleeding. No headache, fever, chills, sweats, vomiting, diarrhea, cough, rashes. + headache where he hit the back of his head. PMHx/pshx: per hpi Social history: EtOH abuse. Never smoker. No illicits. fam hx: NC ros: per hpi Ambulatory Orders Amlodipine Besylate [Norvasc -] 10 mg PO DAILY 05/27/16 Hydrochlorothiazide 25 mg PO DAILY 05/27/16 Sertraline HCl [Zoloft -] 50 mg PO DAILY 05/27/16 Topiramate [Topamax -] 25 mg PO TID #90 tablet 05/28/16 Trazodone HCl 100 mg PO HS #30 tablet 05/28/16 Current Medications Sodium Chloride (Normal Saline -) 1,000 mls @ 125 mls/hr IV ASDIR MOSHE Last Admin: 06/11/16 09:47 Dose: 125 mls/hr Vital Signs - 24 hr 06/11/16 06/11/16 09:19 15:23 Temperature 97.5 F L Pulse Rate 76 Pulse Rate [ 74 Left Radial] Respiratory 20 20 Rate Blood Pressure 107/62 Blood Pressure 93/63 [Right Arm] O2 Sat by Pulse 97 95 Oximetry (%) Intake & Output 06/09/16 06/10/16 06/11/16 06/12/16 07:59 07:59 07:59 07:59 Weight 250 lb NAD, calm JVD flat, neck supple CTAB, nl effort RRR nl s1, s2 no m/r/g + bs soft nt nd ext without e/c/c + dp/pt aaox3 no jaundice, diaphoresis CBC, BMP 06/11/16 10:12 06/11/16 10:12 Laboratory Tests 05/28/16 06/11/16 06/11/16 07:30 09:56 10:12 Magnesium 2.7 H Total Bilirubin 0.6 D AST 21 ALT 20 D Alkaline Phosphatase 89 Creatine Kinase 103 Troponin I < 0.02 Albumin 3.4 Alcohol, Quantitative < 5.0 RPR Titer Nonreactive 06/11/16 16:09 Magnesium Total Bilirubin AST ALT Alkaline Phosphatase Creatine Kinase 82 Troponin I < 0.02 Albumin Alcohol, Quantitative RPR Titer CXR: clear lung madrid per report head CT; no acute pathology EKG: NSR, Nl axis/intervals. incomplete RBBB, early r wave progression. No ischemic changes. tele: NSR 60 year old with a past medical history of HTN, HL, alcohol detoxification ( 05/26/16), GERD, MDD/bipolar, seizure, who presents from [facility] detox s/p syncopal episode. syncope - c/w vasovagal/orthostatic etiology. Would get orthostatic vitals in am. - monitor on telemetry, replete electrolytes. - tsh - echo - hypotensive - infectious w/u per pmd - carotid u/s/neuro eval at discretion of pmd. HTN - holding anti-hypertensives while hypotensive. HL - not on statin per ambulatory medication record, can address need for statin as outpatient. detox: - per pmd
[2016-06-11 22:24] LABS: TROPONIN I < 0.02 ng/ml (0.00-0.05)
[2016-06-12 07:05] LABS: BASOPHIL 0.6 % (0-2.0); EOSINOPHIL 6.9 % (0-4.5); MCH 26.6 pg (25.7-33.7); MCHC 33.2 g/dl (32.0-35.9); MEAN PLT VOLUME 8.2 fl (7.5-11.1); NEUTROPHILS 49.7 % (42.8-82.8); PLATELET COUNT 191 K/MM3 (134-434); RDW 14.9 % (11.9-15.9); WHITE BLOOD COUNT 6.1 K/mm3 (4.0-10.0)
[2016-06-12 07:48] LABS: ALBUMIN 3.2 g/dl (3.4-5.0); ANION GAP 8 (8-16); CALCIUM 8.1 mg/dL (8.5-10.1); CO2 27 mmol/L (21-32); GLUCOSE,RANDOM 83 mg/dL (74-106)
[2016-06-12 07:54] LABS: ALK PHOS 81 U/L (45-117); BILIRUBIN,TOTAL 0.5 mg/dL (0.2-1.0); SGOT/AST 12 U/L (15-37); SGPT/ALT 17 U/L (12-78); TOT PROT 6.4 g/dl (6.4-8.2)
--- NOTE | 2016-06-12 09:10 | HP ---
Admitting History and Physical - Admission History of Present Illness: 60 year old male, with a significant past medical history of alcohol detoxification (05/26/16), who presents to the emergency department via ems from [facility] s/p fall from bed this morning after possible syncopal episode. The patient states he was getting out of bed when he began to feel lightheaded and dizzy. The patient states he can not recall falling to the floor, however, he woke up on the floor. The patient reports experiencing syncope in the past. The patient reports experiencing alcohol withdrawals in April. The patient is a poor historian. He denies chest pain, shortness of breath, headache and dizziness. He denies fever, chills, nausea, vomit, diarrhea and constipation. He denies dysuria, frequency, urgency and hematuria. - Past Medical History BEHAVIORAL HEALTH CLINICIAN: Yes: Seizure Cardiovascular: Yes: HTN, Hyperlipdemia Gastrointestinal: Yes: GERD Psych: Yes: Bipolar, Depression - Smoking History Smoking history: Never smoked Have you smoked in the past 12 months: No - Alcohol/Substance Use Hx Alcohol Use: Yes Home Medications - Allergies Allergies/Adverse Reactions: Allergies Allergy/AdvReac Type Severity Reaction Status Date / Time morphine Allergy Intermediate Rash Verified 06/11/16 09:19 - Home Medications Home Medications: Ambulatory Orders Amlodipine Besylate [Norvasc -] 10 mg PO DAILY 05/27/16 Hydrochlorothiazide 25 mg PO DAILY 05/27/16 Sertraline HCl [Zoloft -] 50 mg PO DAILY 05/27/16 Topiramate [Topamax -] 25 mg PO TID #90 tablet 05/28/16 Trazodone HCl 100 mg PO HS #30 tablet 05/28/16 Family Disease History - Family Disease History Family Disease History: Heart Disease: Brother (2013), Other: Father ( ) , Mother (mental illness) Review of Systems - Review of Systems Cardiovascular: denies: Chest Pain Respiratory: denies: SOB Gastrointestinal: denies: Abdominal Pain Neurological: reports: Syncope, Weakness. denies: Change in LOC Physical Examination Vital Signs: Vital Signs Temperature 98 F 06/12/16 02:54 Pulse Rate 68 06/12/16 06:30 Respiratory Rate 20 06/12/16 02:54 Blood Pressure 106/68 06/12/16 06:30 O2 Sat by Pulse Oximetry (%) 97 06/11/16 20:23 Neck: Yes: Supple Cardiovascular: Yes: Regular Rate and Rhythm Respiratory: Yes: Regular, CTA Bilaterally Gastrointestinal: Yes: Normal Bowel Sounds, Soft. No: Tenderness Edema: No Neurological: Yes: Alert, Oriented. No: Confusion Labs: CBC, BMP 06/12/16 05:35 06/12/16 05:35 Imaging - Results Cat Scan: Report Reviewed Problem List - Problems (1) Syncope Assessment/Plan: CARDIO NEURO FOLLOW LABS TEL ECHO ORTHOSTATIC BP HOLD DIURETICS Code(s): R55 - SYNCOPE AND COLLAPSE Qualifiers: Syncope type: unspecified Qualified Code(s): R55 - Syncope and collapse (2) Alcohol dependence Assessment/Plan: DETOX CONSULT Code(s): F10.20 - ALCOHOL DEPENDENCE, UNCOMPLICATED (3) Bipolar disorder Assessment/Plan: PSYCH CONSULT Code(s): F31.9 - BIPOLAR DISORDER, UNSPECIFIED (4) Hypertension Assessment/Plan: SAME MEDS Code(s): I10 - ESSENTIAL (PRIMARY) HYPERTENSION Qualifiers: Hypertension type: essential hypertension Qualified Code(s): I10 - Essential (primary) hypertension (5) Seizure Assessment/Plan: NEURO CHECK ON MEDS?? Code(s): R56.9 - UNSPECIFIED CONVULSIONS
[2016-06-12] MEDS ORDERED: POTASSIUM CHLORIDE TABS 20 MEQ TABLET.ER (FP) PO ONE (10:45)
[2016-06-12] MEDS: SODIUM CHLORIDE 1,000 ML IV SCH (11:20)
--- NOTE | 2016-06-12 11:44 | PN ---
Progress Note (short form) - Note Progress Note: s: feeling better, no loc, dizzy, cp, sob, palps o: Vital Signs Period Temp Pulse Resp BP Sys/Hylton Pulse Ox Last 24 Hr 98 F-98.1 F 68-88 20-20 84-133/51-74 95-98 NAD, calm JVD flat, neck supple CTAB, nl effort RRR nl s1, s2 no m/r/g ext without e/c/c aaox3 no jaundice, diaphoresis Current Medications Generic Name Dose Route Start Last Admin Trade Name Ismael PRN Reason Stop Dose Admin Amlodipine Besylate 10 mg 06/12/16 10:30 Norvasc - PO DAILY MOSHE Sodium Chloride 1,000 mls @ 125 mls/hr 06/11/16 09:30 06/12/16 11:20 Normal Saline - IV Not Given ASDIR MOSHE Sertraline HCl 50 mg 06/12/16 22:00 Zoloft - PO HS MOSHE Topiramate 25 mg 06/12/16 14:00 Topamax - PO TID MOSHE CBC, BMP 06/12/16 05:35 06/12/16 05:35 CXR: clear lung [place] per report head CT; no acute pathology EKG: NSR, Nl axis/intervals. incomplete RBBB, early r wave progression. No ischemic changes. tele: sr, artifact a/p: 60 year old with a past medical history of HTN, HL, alcohol detoxification (05/26/16), GERD, MDD/bipolar, seizure, who presents from [facility] detox s/p syncopal episode. syncope - c/w vasovagal/orthostatic etiology and pt had +orthostatic hypotension here - labs slightly prerenal on admit, improved with ivfs so likely pt was vol depleted which led to syncope - today pt feeling better, no further sxs - tele benign - echo pending - if echo benign and orthostatic hypotension/symptoms resolved then ok for dc from cardiac pov HTN - consider holding/reducing htn meds if remains orthostatic HL - not on statin per ambulatory medication record, can address need for statin as outpatient. detox: - per pmd
[2016-06-12] MEDS: amLODIPine BESYLATE 10 MG TABLET (FP) PO SCH (12:11)
--- NOTE | 2016-06-12 14:37 | CONSULT ---
Psychiatry Consult Chief Complaint: I came because I relapsed. - Previous Psychiatric Treatment Outpatient: Less than 6 mos ago Inpatient: None - Previous Substance Abuse Treatment Outpatient: Less than 6 mos ago Inpatient: 2 or more prior admissions - Reason for Previous Treatment Reason for Previous Treatment: Alcohol Abuse - Family History Family History: Unremarkable - Current Medications Current Medications: Active Medications Amlodipine Besylate (Norvasc -) 10 mg PO DAILY [facility] Last Admin: 06/12/16 12:11 Dose: Not Given Sodium Chloride (Normal Saline -) 1,000 mls @ 125 mls/hr IV ASDIR [facility] Last Admin: 06/12/16 11:20 Dose: Not Given Sertraline HCl (Zoloft -) 50 mg PO HS MOSHE Topiramate (Topamax -) 25 mg PO TID [facility] - Allergies Allergies: Allergies Allergy/AdvReac Type Severity Reaction Status Date / Time morphine Allergy Intermediate Rash Verified 06/11/16 09:19 - Current Living Status Usual Living Arrangement: Alone - Current Mental Status Evaluation Appearance: Well Groomed Attitude: Cooperative - Affect Affect: Full Range Appropriateness: Appropriate to Content - Mood Mood: Euthymic - Speech/Language Expressive: Coherent Receptive: Age Appropriate Comprehension of Spoken Words - Psychomotor Activity Psychomotor Activity: Normal - Thought Process Thought Process: Intact - Thought Content Hallucinations: Absent Delusions: Absent - Self Perception Self Perception: No Impairment - Cognition Attention: Alert Orientation: Time Memory, Immediate Recall: Intact Memory, Remote: Intact - Concentration Serial Sevens Intact: No Simple Calculations Intact: No - Abstraction Proverb Interpretation: Intact Judgement: Minimally Impaired - Insight Insight: Intact - Impulse Control Impulse Control: Good Control - Suicidal Ideation Suicidal Ideation: No - Homicidal Ideation Homicidal Ideation: No Assessment/Plan 1) nContinue with [id number] 50mg po od. 2)Patient seeking [facility].
[2016-06-12] MEDS: TOPIRAMATE 25 MG TABLET (FP) PO SCH ×2 (15:00→22:45)
[2016-06-12] MEDS ORDERED: PT OWN MED DRAWER 7, Y5N ONE ×3 (15:22→21:41)
--- NOTE | 2016-06-12 16:06 | PN ---
[facility] Progress Note (SOAP) Subjective: PT. WAS SENT TO ED BECAUSE OF SYNCOPAL EPISODE. Objective: 06/12/16 16:02 Vital Signs - 8 hr 06/12/16 06/12/16 06/12/16 10:00 12:06 14:20 Temperature 98.1 F 98.2 F Pulse Rate 75 66 Pulse Rate [ 66 Left side Sitting] Pulse Rate [ 80 Left side Standing] Pulse Rate [ Left side Supine] Respiratory 20 20 Rate Blood Pressure 110/67 139/87 Blood Pressure 129/72 [Left side Sitting] Blood Pressure 108/63 [Left side Standing] Blood Pressure [Left side Supine] O2 Sat by Pulse 98 Oximetry (%) 06/12/16 15:25 Temperature Pulse Rate Pulse Rate [ 65 Left side Sitting] Pulse Rate [ 67 Left side Standing] Pulse Rate [ 66 Left side Supine] Respiratory Rate Blood Pressure Blood Pressure 139/89 [Left side Sitting] Blood Pressure 123/78 [Left side Standing] Blood Pressure 111/69 [Left side Supine] O2 Sat by Pulse Oximetry (%) Laboratory Results - last 24 hr 06/11/16 06/11/16 06/12/16 16:09 21:15 05:35 WBC 6.1 RBC 4.88 Hgb 12.9 Hct 39.0 MCV 80.0 MCHC 33.2 RDW 14.9 Plt Count 191 MPV 8.2 Neutrophils % 49.7 Lymphocytes % 32.6 D Monocytes % 10.2 Eosinophils % 6.9 H Basophils % 0.6 Sodium Potassium Chloride Carbon Dioxide Anion Gap BUN Creatinine Creat Clearance w eGFR Random Glucose Calcium Total Bilirubin AST ALT Alkaline Phosphatase Creatine Kinase 82 117 Troponin I < 0.02 < 0.02 Total Protein Albumin 06/12/16 05:35 WBC RBC Hgb Hct MCV MCHC RDW Plt Count MPV Neutrophils % Lymphocytes % Monocytes % Eosinophils % Basophils % Sodium 140 Potassium 3.3 L Chloride 105 Carbon Dioxide 27 Anion Gap 8 BUN 19 H Creatinine 1.0 Creat Clearance w eGFR > 60 Random Glucose 83 D Calcium 8.1 L Total Bilirubin 0.5 AST 12 L D ALT 17 Alkaline Phosphatase 81 Creatine Kinase Troponin I Total Protein 6.4 Albumin 3.2 L LABS NOTED Assessment: 06/12/16 16:03 HYPOKALEMIA SYNCOPE Plan: MAY RETURN TO REHAB WHEN MEDICALLY STABLE
[2016-06-12] MEDS: SERTRALINE HCL 50 MG TABLET (FP) PO SCH (22:45)
[2016-06-13] MEDS: amLODIPine BESYLATE 10 MG TABLET (FP) PO SCH (10:02)
[2016-06-13 10:38] LABS: CALCIUM 7.9 mg/dL (8.5-10.1); CREATININE 0.9 mg/dL (0.7-1.3)
--- NOTE | 2016-06-13 10:52 | PN ---
Progress Note, Physician History of Present Illness: PERIODS OF ORTHOSTATIC HYPOTENSION - Current Medication List Current Medications: Active Medications Sertraline HCl (Zoloft -) 50 mg PO HS [facility] Last Admin: 06/12/16 22:45 Dose: 50 mg Sodium Chloride (Sodium Chloride Tablet -) 1 gm PO BID MOSHE Topiramate (Topamax -) 25 mg PO TID [facility] Last Admin: 06/12/16 22:45 Dose: 25 mg - Objective Vital Signs: Vital Signs Temperature 97.6 F 06/13/16 02:05 Pulse Rate 63 06/13/16 02:05 Respiratory Rate 20 06/13/16 02:05 Blood Pressure 129/71 06/13/16 02:05 O2 Sat by Pulse Oximetry (%) 98 06/12/16 21:00 Cardiovascular: Yes: Regular Rate and Rhythm Respiratory: Yes: Regular, CTA Bilaterally Gastrointestinal: Yes: Normal Bowel Sounds, Soft Labs: CBC, BMP 06/12/16 05:35 06/13/16 05:35 Problem List - Problems (1) Syncope Assessment/Plan: CARDIO NEURO FOLLOW LABS TEL ECHO ORTHOSTATIC BP--- Selected Entries 06/13/16 10:00 Blood Pressure 119/74 [Left side Sitting] Blood Pressure 88/60 [Left side Standing] Blood Pressure 125/76 [Left side Supine] ADD NACL TABS HOLD DIURETICS Code(s): R55 - SYNCOPE AND COLLAPSE Qualifiers: Syncope type: unspecified Qualified Code(s): R55 - Syncope and collapse (2) Alcohol dependence Assessment/Plan: DETOX CONSULT Code(s): F10.20 - ALCOHOL DEPENDENCE, UNCOMPLICATED (3) Bipolar disorder Assessment/Plan: PSYCH CONSULT Code(s): F31.9 - BIPOLAR DISORDER, UNSPECIFIED (4) Hypertension Assessment/Plan: SAME MEDS Code(s): I10 - ESSENTIAL (PRIMARY) HYPERTENSION Qualifiers: Hypertension type: essential hypertension Qualified Code(s): I10 - Essential (primary) hypertension (5) Seizure Assessment/Plan: NEURO CHECK ON MEDS?? Code(s): R56.9 - UNSPECIFIED CONVULSIONS (6) Orthostatic hypotension Assessment/Plan: MONITOR ON NACL TABS Code(s): I95.1 - ORTHOSTATIC HYPOTENSION
[2016-06-13] MEDS ORDERED: PT OWN MED DRAWER 7, Y5N ONE ×3 (11:54→23:03)
--- NOTE | 2016-06-13 13:01 | PN ---
Progress Note, Physician Chief Complaint: Feeling better Less dizzy History of Present Illness: No complaints TEle: SR and ST - Current Medication List Current Medications: Active Medications Sertraline HCl (Zoloft -) 50 mg PO HS [facility] Last Admin: 06/12/16 22:45 Dose: 50 mg Sodium Chloride (Sodium Chloride Tablet -) 1 gm PO BID MOSHE Topiramate (Topamax -) 25 mg PO TID [facility] Last Admin: 06/12/16 22:45 Dose: 25 mg - Objective Vital Signs: Vital Signs Temperature 97.6 F 06/13/16 02:05 Pulse Rate 61 06/13/16 10:00 Respiratory Rate 18 06/13/16 10:00 Blood Pressure 125/76 06/13/16 10:00 O2 Sat by Pulse Oximetry (%) 97 06/13/16 10:00 Constitutional: Yes: No Distress Eyes: Yes: WNL HENT: Yes: WNL Neck: Yes: WNL Cardiovascular: Yes: WNL Respiratory: Yes: WNL Gastrointestinal: Yes: WNL Musculoskeletal: Yes: WNL Extremities: Yes: WNL Labs: CBC, BMP 06/12/16 05:35 06/13/16 05:35 Assessment/Plan a/p: 60 year old with a past medical history of HTN, HL, alcohol detoxification (05/26/16), GERD, MDD/bipolar, seizure, who presents from [facility] detox s/p syncopal episode. syncope - c/w vasovagal/orthostatic etiology and pt had +orthostatic hypotension here - labs slightly prerenal on admit, improved with ivfs so likely pt was vol depleted which led to syncope - today pt feeling better, no further sxs - tele benign - Echo benign and orthostatic hypotension/symptoms improving, ok for dc from cardiac pov HTN - consider holding/reducing htn meds if remains orthostatic HL - not on statin per ambulatory medication record, can address need for statin as outpatient. detox: - per pmd
[2016-06-13] MEDS: SODIUM CHLORIDE 1 GM TABLET PO SCH ×2 (15:12→23:46)
[2016-06-13] MEDS: TOPIRAMATE 25 MG TABLET (FP) PO SCH ×2 (15:12→22:08)
--- NOTE | 2016-06-13 15:46 | CONSULT ---
Consult - text type - Consultation Consultation Note: NEUROLOGY CONSULTATION is greatly appreciated: This 60 yo RH homeless man with h/o HTn and bipolar depression is maintained on amlodipine, HCTZ, sertraline, trazadone and topiramate (25 TID). Long h/o alcoholism complicated by multiple ETOH withdrawal seizures in the past , last in August 2015. Pt denies and seizures unassociated with ETOH withdrawal but does note he gets Topiramate for BOTH Bipolar and seizures. Last ETOH was 2015. Wednesday bent over to tie his shoes, then got out of bed, felt lightheaded, hot flushing, diaphoresis and brief LOC. rapidly reoriented. No seizure activity noted. Pt has previously fainted and recalls that it was similar. Also, he notes occasional lightheadedness when standing rapidly. CT of head (reviewed): Normal scan with faint calcification in both basal ganglia. CT of C-spine: Mild spondylosis without traumatic changes. ROMARIO: Obese. Normal; neck ROM. No evidence of external head trauma. NEURO: MS/speech: Normal CN II-XII: Normal without Nystagmus. Motor: No drift or tremor. Normal strength, tone, bulk. Normal reflexes except absent AJ's. Downgoing toes. Coord: Normal Sensory: Normal. Romberg Neg. Gait: Normal IMP: Normal Neurological exam. Syncope (much more likely than seizure). Suggest: Follow orthostatic BP's Reduce or D/C BP Meds (Pt apparently has normal BP's here, off meds ). OK to transfer back to [facility] if cardiology agrees. Change Topiramate to 50 mg q 12 hours (topiramate has T1/2 of 72 hours and doesn't need to be taken TID. Also, 75 mg is homeopathic for seizures. ) Thank you very much, Shamar Costello MD
[2016-06-13 18:20] LABS: THYROID STIMULATING HORMONE 2.39 uIU/ml (0.358-3.74)
[2016-06-13] MEDS: SERTRALINE HCL 50 MG TABLET (FP) PO SCH (22:05)
[2016-06-14] MEDS: TOPIRAMATE 25 MG TABLET (FP) PO SCH ×3 (05:31→21:16)
--- NOTE | 2016-06-14 08:11 | DS ---
Physical Examination Vital Signs: Vital Signs Temperature 98.4 F 06/14/16 05:47 Pulse Rate 61 06/14/16 05:47 Respiratory Rate 18 06/14/16 05:47 Blood Pressure 124/71 06/14/16 05:47 O2 Sat by Pulse Oximetry (%) 97 06/14/16 00:33 Findings/Remarks: FEELS BETTER NO FURTHER DIZZINESS Cardiovascular: Yes: Regular Rate and Rhythm Respiratory: Yes: Regular, CTA Bilaterally Gastrointestinal: Yes: Normal Bowel Sounds, Soft Neurological: Yes: Alert, Oriented Labs: CBC, BMP 06/12/16 05:35 06/13/16 05:35 Discharge Summary Reason For Visit: SYNCOPE,HEAD INJURY Current Active Problems Head injury (Acute) Orthostatic hypotension (Acute) Syncope (Acute) Hospital Course: 60 year old male, with a significant past medical history of alcohol detoxification (05/26/16), who presents to the emergency department via ems from [facility] s/p fall from bed this morning after possible syncopal episode. The patient states he was getting out of bed when he began to feel lightheaded and dizzy. The patient states he can not recall falling to the floor, however, he woke up on the floor. The patient reports experiencing syncope in the past. The patient reports experiencing alcohol withdrawals in April. The patient is a poor historian. He denies chest pain, shortness of breath, headache and dizziness. He denies fever, chills, nausea, vomit, diarrhea and constipation. He denies dysuria, frequency, urgency and hematuria. - Past Medical History [employer]: Yes: Seizure Cardiovascular: Yes: HTN, Hyperlipdemia Gastrointestinal: Yes: GERD Psych: Yes: Bipolar, Depression - Problems (1) Syncope Assessment/Plan: CARDIO NEURO FOLLOW LABS TEL ECHO ORTHOSTATIC BP--- Selected Entries 06/13/16 10:00 Blood Pressure 119/74 [Left side Sitting] Blood Pressure 88/60 [Left side Standing] Blood Pressure 125/76 [Left side Supine] ADD NACL TABS HOLD DIURETICS Code(s): R55 - SYNCOPE AND COLLAPSE Qualifiers: Syncope type: unspecified Qualified Code(s): R55 - Syncope and collapse (2) Alcohol dependence Assessment/Plan: DETOX CONSULT Code(s): F10.20 - ALCOHOL DEPENDENCE, UNCOMPLICATED (3) Bipolar disorder Assessment/Plan: PSYCH CONSULT Code(s): F31.9 - BIPOLAR DISORDER, UNSPECIFIED (4) Hypertension Assessment/Plan: SAME MEDS Code(s): I10 - ESSENTIAL (PRIMARY) HYPERTENSION Qualifiers: Hypertension type: essential hypertension Qualified Code(s): I10 - Essential (primary) hypertension (5) Seizure Assessment/Plan: NEURO CHECK ON MEDS?? Code(s): R56.9 - UNSPECIFIED CONVULSIONS (6) Orthostatic hypotension Assessment/Plan: MONITOR ON NACL TABS Code(s): I95.1 - ORTHOSTATIC HYPOTENSION Condition: Improved - Instructions Diet, Activity, Other Instructions: MONITOR BP FOLLOW UP WITH PMD - Home Medications Comprehensive Discharge Medication List: Ambulatory Orders Sertraline HCl [Zoloft -] 50 mg PO DAILY 05/27/16 Topiramate [Topamax -] 25 mg PO TID #90 tablet 05/28/16 Sodium Chloride Tablet - 1 gm PO BID tablet 06/14/16
[2016-06-14] MEDS ORDERED: PT OWN MED DRAWER 7, Y5N ONE ×3 (08:45→22:22)
[2016-06-14] MEDS: SODIUM CHLORIDE 1 GM TABLET PO SCH ×2 (09:25→22:19)
--- NOTE | 2016-06-14 11:32 | PN ---
Progress Note, Physician History of Present Illness: Seen and examiend in [facility] Feels well Dizziness has improved Non-orthostatic this AM (133/76 to 122/72) no Sx - Current Medication List Current Medications: Active Medications Sertraline HCl (Zoloft -) 50 mg PO HS [facility] Last Admin: 06/13/16 22:05 Dose: 50 mg Sodium Chloride (Sodium Chloride Tablet -) 1 gm PO BID [facility] Last Admin: 06/14/16 09:25 Dose: 1 gm Topiramate (Topamax -) 25 mg PO TID [facility] Last Admin: 06/14/16 05:31 Dose: 25 mg - Objective Vital Signs: Vital Signs Temperature 98.4 F 06/14/16 10:00 Pulse Rate 63 06/14/16 10:00 Respiratory Rate 18 06/14/16 10:00 Blood Pressure 126/70 06/14/16 10:00 O2 Sat by Pulse Oximetry (%) 97 06/14/16 09:00 Constitutional: Yes: No Distress Eyes: Yes: WNL HENT: Yes: WNL Neck: Yes: WNL Cardiovascular: Yes: WNL Respiratory: Yes: WNL Gastrointestinal: Yes: WNL Extremities: Yes: WNL Edema: No Labs: CBC, BMP 06/12/16 05:35 06/13/16 05:35 Assessment/Plan a/p: 60 year old with a past medical history of HTN, HL, alcohol detoxification (05/26/16), GERD, MDD/bipolar, seizure, who presents from [facility] detox s/p syncopal episode. syncope - c/w vasovagal/orthostatic etiology and pt had +orthostatic hypotension here - labs slightly prerenal on admit, improved with ivfs so likely pt was vol depleted which led to syncope - today pt feeling better, no further sxs - tele benign - Echo benign and orthostatic hypotension/symptoms improving -Ok for dc from cardiac pov on NaCl. -Will need cardiology follow up in 1 week to reassess BP and antihypertensive regimen HTN - consider holding/reducing htn meds if remains orthostatic HL - not on statin per ambulatory medication record, can address need for statin as outpatient. detox: - per pmd
[2016-06-14] MEDS: SERTRALINE HCL 50 MG TABLET (FP) PO SCH (21:16)
[2016-06-15] MEDS: TOPIRAMATE 25 MG TABLET (FP) PO SCH ×2 (06:13→14:40)
[2016-06-15] MEDS ORDERED: PT OWN MED DRAWER 7, Y5N ONE (10:12)
[2016-06-15] MEDS: SODIUM CHLORIDE 1 GM TABLET PO SCH (10:17)
--- NOTE | 2016-06-15 12:38 | PN ---
Progress Note, Physician Chief Complaint: patient awaiting for bed placemment at [facility] rehab came from [facility] - Current Medication List Current Medications: Active Medications Sertraline HCl (Zoloft -) 50 mg PO HS [facility] Last Admin: 06/14/16 21:16 Dose: 50 mg Sodium Chloride (Sodium Chloride Tablet -) 1 gm PO BID [facility] Last Admin: 06/15/16 10:17 Dose: 1 gm Topiramate (Topamax -) 25 mg PO TID [facility] Last Admin: 06/15/16 06:13 Dose: 25 mg - Objective Vital Signs: Vital Signs Temperature 97.8 F 06/15/16 05:57 Pulse Rate 64 06/15/16 05:57 Respiratory Rate 18 06/15/16 05:57 Blood Pressure 125/70 06/15/16 05:57 O2 Sat by Pulse Oximetry (%) 97 06/14/16 20:53 Constitutional: Yes: Calm Neck: Yes: Trachea Midline Cardiovascular: Yes: Regular Rate and Rhythm, S1, S2 Respiratory: Yes: CTA Bilaterally Gastrointestinal: Yes: Normal Bowel Sounds, Soft Edema: No Neurological: Yes: Alert, Oriented Labs: CBC, BMP 06/12/16 05:35 06/13/16 05:35 Problem List - Problems (1) Syncope Assessment/Plan: ECHO done per cardio stable tor discharge awaiting bed placement lytes now back to normal Code(s): R55 - SYNCOPE AND COLLAPSE Qualifiers: Syncope type: unspecified Qualified Code(s): R55 - Syncope and collapse
[2016-06-15 13:41] VITALS: BP 128/66; PULSE 67; TEMP 98.2
== END 2016-06-15 15:08 | disposition other institution (70) | DRG 204 ==
LOC: JER 09:05 → JERBED 12:41 → J4W 17:11 → J6S 06-14 18:34
PROVIDERS: ADMIT Family Medicine; ATTEND Family Medicine
DX: R55 Syncope and collapse (principal); F10.20 Alcohol dependence, uncomplicated; I10 Essential (primary) hypertension; R56.9 Unspecified convulsions; E78.5 Hyperlipidemia, unspecified; S09.90XA Unspecified injury of head, initial encounter; W19.XXXA Unspecified fall, initial encounter; Y93.9 Activity, unspecified; Y92.89 Other specified places as the place of occurrence of the external cause; Y99.9 Unspecified external cause status; I95.1 Orthostatic hypotension; E87.6 Hypokalemia; K21.9 Gastro-esophageal reflux disease without esophagitis; F31.9 Bipolar disorder, unspecified
CPT/HCPCS: 36415; 70450-TC; 71010-TC; 72125-TC; 80048; 80053; 80307; 82550; 83735; 84443; 84484; 85025; 93005; 93010; 93306-TC; 99284-25

== ENCOUNTER 2016-06-15 15:46 | Inpatient (IN) | payer OTHER ==
[2016-06-15 16:38] VITALS: BMI 38.0
--- NOTE | 2016-06-15 18:26 | HP ---
Admission ROS [facility] - [facility] Chief Complaint: I WANT TO GO TO REHAB Allergies/Adverse Reactions: Allergies Allergy/AdvReac Type Severity Reaction Status Date / Time morphine Allergy Intermediate Rash Verified 06/15/16 18:02 History of Present Illness: 60 YEARS OLD LONG HISTORY OF ALCOHOL DEPENDENCE, RETURN FROM [facility] TREATED WITH SYNCOPE, AMBULATE WITH CANE, HAS HYPERTENSION, GERD AND ARTHRITIS AND BIPOLAR II IS ADMITTED TO REHAB Exam Limitations: No Limitations - Ebola screening Have you traveled outside of the country in the last 21 days: No (N) Have you had contact with anyone from an Ebola affected area: No Have you been sick,other than usual withdrawal symptoms: No Do you have a fever: No - Review of Systems Constitutional: Weight Stable EENT: reports: Other (EYE GLASSES) Respiratory: reports: No Symptoms reported Cardiac: reports: No Symptoms Reported GI: reports: No Symptoms Reported : reports: No Symptoms Reported Musculoskeletal: reports: Back Pain, Joint Pain, Muscle Pain (BACK WRISTS AND KNEES) Integumentary: reports: No Symptoms Reported Neuro: reports: Seizure (LAST EPISODE 05/26/2016) Endocrine: reports: No Symptoms Reported Hematology: reports: No Symptoms Reported Psychiatric: reports: Judgement Intact, Orientated x3, Depressed Other Systems: Reviewed and Negative Patient History - Patient Medical History Hx Anemia: No Hx Asthma: No Hx Chronic Obstructive Pulmonary Disease (COPD): No Hx Cancer: No Hx Cardiac Disorders: No Hx Congestive Heart Failure: No Hx Hypertension: Yes Hx Hypercholesterolemia: Yes Hx Pacemaker: No HX Cerebrovascular Accident: No Hx Seizures: Yes (last episode early this year) Hx Dementia: No Hx Diabetes: No Hx Gastrointestinal Disorders: Yes (GERD) Hx Liver Disease: No Hx Genitourinary Disorders: No Hx Sexually Transmitted Disorders: No Hx Renal Disease (ESRD): No Hx Thyroid Disease: No Hx Human Immunodeficiency Virus (HIV): No Hx Hepatitis C: No Hx Depression: No Hx Suicide Attempt: No Hx Bipolar Disorder: Yes Hx Schizophrenia: No - Patient Surgical History Past Surgical History: No Hx Neurologic Surgery: No Hx Cataract Extraction: No Hx Cardiac Surgery: No Hx Lung Surgery: No Hx Breast Surgery: No Hx Breast Biopsy: No Hx Abdominal Surgery: No Hx Appendectomy: No Hx Cholecystectomy: No Hx Genitourinary Surgery: No Hx Orthopedic Surgery: No - PPD History Previous Implant?: Yes Documented Results: Negative w/proof Implanted On Prior R Admission?: Yes Date: 05/29/16 Results: 0 mm PPD to be Administered?: No - Smoking Cessation Smoking history: Never smoked Have you smoked in the past 12 months: No Cigars Per Day: 0 Hx Chewing Tobacco Use: No Initiated information on smoking cessation: No - Substance & Tx. History Hx Alcohol Use: Yes Hx Substance Use: No Substance Use Type: Alcohol Hx Substance Use Treatment: Yes - Substances Abused Alcohol Route: Oral Frequency: Daily Amount used: 3 [employer] Age of first use: 19 Date of Last Use: 05/26/16 Family Disease History - Family Disease History Family Disease History: Heart Disease: Brother (2013), Other: Father ( ) , Mother (mental illness) Admission Physical Exam S - Vital Signs Vital Signs: Vital Signs - 24 hr 06/15/16 16:05 Temperature 96.8 F L Pulse Rate 78 Respiratory 18 Rate Blood Pressure 124/80 - Physical General Appearance: Yes: No Apparent Distress, Nourished, Appropriately Dressed HEENTM: Yes: Hearing grossly Normal, Normal ENT Inspection, Normocephalic, Normal Voice Respiratory: Yes: Chest Non-Tender, Lungs Clear, Normal Breath Sounds, No Respiratory Distress, No Accessory Muscle Use Neck: Yes: Supple, Trachea in good position Breast: Yes: Breasts Symetrical Cardiology: Yes: Regular Rhythm, Regular Rate, S1, S2 Abdominal: Yes: Non Tender, Soft Genitourinary: Yes: Within Normal Limits Back: Yes: Normal Inspection Musculoskeletal: Yes: Gait Steady (CANE), Back pain, Muscle Pain (WRISTS + KNEES ) Extremities: Yes: Normal Inspection, Non-Tender Neurological: Yes: Fully Oriented, Alert, Motor Strength 5/5, Normal Response, Depressed Affect Integumentary: Yes: Warm Lymphatic: Yes: Within Normal Limits - Diagnostic (1) Alcohol dependence with uncomplicated withdrawal Current Visit: Yes Status: Acute (2) Bipolar disorder Current Visit: Yes Status: Suspected Qualifiers: Active/Remission status: in partial remission Most recent bipolar episode type: depressed Qualified Code(s): F31.75 - Bipolar disorder, in partial remission, most recent episode depressed Comment: By history. (3) Weakness of lower extremity Current Visit: Yes Status: Acute Qualifiers: Laterality: bilateral Qualified Code(s): M62.81 - Muscle weakness ( generalized) Comment: cane (4) History of hypertension Current Visit: Yes Status: Resolved (5) Arthritis Current Visit: Yes Status: Acute Comment: WRISTS + KNEES + LUMBAR SPINE Cleared for Admission [facility] - Detox or Rehab [facility] Level of Care: Observation Bed Claeared for Rehab Admission: Yes [facility] Breath Alcohol Content Breath Alcohol Content: 0 Urine Drug Screen - Results Drug Screen Negative: No Urine Drug Screen Results: BZO-Benzodiazepines, TCA-Tricyclic Antidepress
[2016-06-15] MEDS ORDERED: MAG HYDROX/AL HYDROX/SIMETH 30 ML UNIT-DOSE CUP PO PRN (18:35)
[2016-06-15] MEDS ORDERED: hydrOXYzine PAMOATE 50 MG CAPSULE (FP) PO PRN (18:35)
[2016-06-15] MEDS ORDERED: MAGNESIUM HYDROX 2400MG/30ML ORAL SUSPENSION 30 ML CUP PO PRN (18:35)
[2016-06-15] MEDS ORDERED: diphenhydrAMINE HCL 50 MG CAPSULE PO PRN (18:35)
[2016-06-15] MEDS ORDERED: guaiFENesin/D-METHORPHAN HB 10 ML UNIT-DOSE CUPS PO PRN (18:35)
[2016-06-15] MEDS ORDERED: P-EPHED 60MG/TRIPROLIDI 2.5MG TABLET PO PRN (18:35)
[2016-06-15] MEDS ORDERED: ACETAMINOPHEN 325 MG TABLET (FP) PO PRN (18:35)
[2016-06-15] MEDS ORDERED: LOPERAMIDE HCL 2 MG CAPSULE PO PRN (18:35)
[2016-06-15] MEDS ORDERED: MENTHOL/PHENOL 1 EACH UD MM PRN (18:35)
[2016-06-15] MEDS ORDERED: MAGNESIUM CITRATE 300 ML BOTTLE PO PRN (18:35)
[2016-06-15] MEDS ORDERED: IBUPROFEN 400 MG TABLET (FP) PO PRN (18:35)
[2016-06-15] MEDS: THIAMINE HCL 100 MG TABLET (FP) PO SCH (21:30)
[2016-06-15] MEDS: RANITIDINE HCL 150 MG TABLET (FP) PO SCH (21:31)
[2016-06-15] MEDS ORDERED: traZODone HCL 50 MG TABLET (FP) PO ONE (22:49)
--- NOTE | 2016-06-15 22:49 | PN ---
[facility] Progress Note Note: received nurse informed patient requests pneumovax pneumovax ordered continue rehab
--- NOTE | 2016-06-16 08:10 | HP ---
Psychiatrist Admission - Data Date of interview: 06/16/16 Admission source: [facility] Identifying data: This is the first 5N inpatient rehabilitation admission for this 60 year old black male who is ,a father of four,homeless, unemployed and supported on Welfare. Medical History: Significant for a history of carpal tunnel syndrome,low back pain,benign prostatic hyperplasia (BPH),hypercholesterolemia and withdrawal- related seizures.Patient was previously on 3W for rehab but transferred to [facility] for evaluation s/p a fall. Now ambulating with a cane due to gait instability. Psychiatric History: Patient reports was diagnosed with MDD and Bipolar Disorder. States was hospitalized 5 times, he is known to [facility] (most recent admission),[facility] ([place]) and [facility] in [place], reports he sees Dr.James Miller in outpatient psychiatric services at [facility] in [facility]. No reported history of suicide attempts. He currently on the following medications of zoloft 50 mg/daily, trazodone 50 mg/hs, Topomax 25 mg po tid. Physical/Sexual Abuse/Trauma History: Denies history of sexual, physical and verbal abuse. Vital Signs: Vital Signs - 24 hr 06/15/16 06/15/16 06/16/16 16:05 20:23 00:36 Temperature 96.8 F L 97.2 F L Pulse Rate 78 74 Respiratory 18 18 18 Rate Blood Pressure 124/80 138/78 06/16/16 06/16/16 03:30 06:59 Temperature 97.5 F L Pulse Rate 71 Respiratory 18 20 Rate Blood Pressure 125/76 Allergies/Adverse Reactions: Allergies Allergy/AdvReac Type Severity Reaction Status Date / Time morphine Allergy Intermediate Rash Verified 06/15/16 18:02 Concur with the findings of this exam: Yes - Substance Abuse/Tx History Hx Alcohol Use: Yes (vodka, rum daily.) Hx Substance Use: No Substance Use Type: Alcohol Hx Substance Use Treatment: Yes ([facility]) - Admission Criteria Previous failed treatment: Yes Poor recovery environment: Yes Comorbidities: Yes Lacks judgement: Yes Mental Status Exam - Mental Status Exam Alert and Oriented to: Time, Place, Person Cognitive Function: Grossly Intact Patient Appearance: Well Groomed Mood: Hopeful Affect: Appropriate, Mood Congruent Patient Behavior: Appropriate, Cooperative Speech Pattern: Clear, Appropriate Voice Loudness: Normal Thought Process: Intact, Goal Oriented Thought Disorder: Not Present Hallucinations: Denies Suicidal Ideation: Denies Homicidal Ideation: Denies Insight/Judgement: Fair Sleep: Fair Appetite: Fair Muscle strength/Tone: Normal Gait/Station: Normal Psychiatric Findings - Problem List ([place] 1, 2,3) (1) Bipolar disorder Current Visit: Yes Status: Suspected Qualifiers: Active/Remission status: in partial remission Most recent bipolar episode type: depressed Qualified Code(s): F31.75 - Bipolar disorder, in partial remission, most recent episode depressed Comment: By history. (2) Alcohol dependence Current Visit: No Status: Acute - Initial Treatment Plan Initial Treatment Plan: will continue his current medications , monitor progress as needed.
[2016-06-16 10:31] LABS: MCH 26.7 pg (25.7-33.7); MCHC 33.3 g/dl (32.0-35.9); MEAN CELL VOLUME 80.2 fl (80-96); MEAN PLT VOLUME 8.3 fl (7.5-11.1); PLATELET COUNT 201 K/MM3 (134-434); RDW 14.9 % (11.9-15.9); WHITE BLOOD COUNT 6.6 K/mm3 (4.0-10.0)
[2016-06-16] MEDS: SERTRALINE HCL 50 MG TABLET (FP) PO SCH (10:41)
[2016-06-16] MEDS: RANITIDINE HCL 150 MG TABLET (FP) PO SCH ×2 (10:41→21:25)
[2016-06-16] MEDS: PRENATAL VITAMINS W/ FOLIC ACID TABLET (FP) PO SCH (10:41)
[2016-06-16 10:43] LABS: ALBUMIN 3.6 g/dl (3.4-5.0); SGOT/AST 18 U/L (15-37); SGPT/ALT 21 U/L (12-78)
[2016-06-16 10:52] LABS: ALK PHOS 83 U/L (45-117); ANION GAP 7 (8-16); BILIRUBIN,TOTAL 0.8 mg/dL (0.2-1.0); CALCIUM 8.3 mg/dL (8.5-10.1); CO2 23 mmol/L (21-32); GLUCOSE,RANDOM 86 mg/dL (74-106); TOT PROT 7.3 g/dl (6.4-8.2)
[2016-06-16] MEDS ORDERED: PNEUMOCOCCAL 23 VACCINE 0.5 ML VIAL IM ONE (12:00)
[2016-06-16] MEDS: TOPIRAMATE 25 MG TABLET (FP) PO SCH ×2 (14:12→21:25)
[2016-06-16 14:29] LABS: URINE APPEARANCE CLEAR; URINE BILIRUBIN NEGATIVE (NEGATIVE); URINE BLOOD NEGATIVE (NEGATIVE); URINE COLOR STRAW; URINE GLUCOSE (UA) NEGATIVE (NEGATIVE); URINE KETONE NEGATIVE (NEGATIVE); URINE LEUK ESTERASE NEGATIVE (NEGATIVE); URINE NITRITE NEGATIVE (NEGATIVE); URINE PROTEIN NEGATIVE (NEGATIVE); URINE UROBILINOGEN NEGATIVE E.U./dl (0.2-1.0)
--- NOTE | 2016-06-16 16:21 | EKG ---
Test Reason : Blood Pressure : / mmHG Vent. Rate : 064 BPM Atrial Rate : 064 BPM P-R Int : 176 ms QRS Dur : 084 ms QT Int : 400 ms P-R-T Axes : 034 009 050 degrees QTc Int : 412 ms NORMAL SINUS RHYTHM MINIMAL VOLTAGE CRITERIA FOR LVH, MAY BE NORMAL VARIANT BORDERLINE ECG WHEN COMPARED WITH ECG OF 11-JUN-2016 09:38, T WAVE VARIATION Confirmed by ADONIS BROWN MD ([id number]) on 06/16/2016 4:20:48 PM Referred By: Confirmed By:ADONIS BROWN MD
[2016-06-16] MEDS: THIAMINE HCL 100 MG TABLET (FP) PO SCH (21:25)
[2016-06-16] MEDS: traZODone HCL 50 MG TABLET (FP) PO SCH (21:25)
[2016-06-17] MEDS: TOPIRAMATE 25 MG TABLET (FP) PO SCH ×3 (06:38→21:53)
[2016-06-17] MEDS: RANITIDINE HCL 150 MG TABLET (FP) PO SCH ×2 (10:18→21:52)
[2016-06-17] MEDS: SERTRALINE HCL 50 MG TABLET (FP) PO SCH (10:18)
[2016-06-17] MEDS: PRENATAL VITAMINS W/ FOLIC ACID TABLET (FP) PO SCH (10:18)
[2016-06-17] MEDS: THIAMINE HCL 100 MG TABLET (FP) PO SCH (21:52)
[2016-06-17] MEDS: traZODone HCL 50 MG TABLET (FP) PO SCH (21:53)
[2016-06-18] MEDS: TOPIRAMATE 25 MG TABLET (FP) PO SCH ×3 (06:23→21:52)
[2016-06-18] MEDS: SERTRALINE HCL 50 MG TABLET (FP) PO SCH (10:29)
[2016-06-18] MEDS: RANITIDINE HCL 150 MG TABLET (FP) PO SCH ×2 (10:29→21:52)
[2016-06-18] MEDS: PRENATAL VITAMINS W/ FOLIC ACID TABLET (FP) PO SCH (10:29)
[2016-06-18] MEDS: THIAMINE HCL 100 MG TABLET (FP) PO SCH (21:51)
[2016-06-18] MEDS: traZODone HCL 50 MG TABLET (FP) PO SCH (21:52)
[2016-06-19] MEDS: TOPIRAMATE 25 MG TABLET (FP) PO SCH ×3 (06:10→22:03)
[2016-06-19] MEDS: SERTRALINE HCL 50 MG TABLET (FP) PO SCH (10:18)
[2016-06-19] MEDS: RANITIDINE HCL 150 MG TABLET (FP) PO SCH ×2 (10:18→22:03)
[2016-06-19] MEDS: PRENATAL VITAMINS W/ FOLIC ACID TABLET (FP) PO SCH (10:18)
[2016-06-19] MEDS: traZODone HCL 50 MG TABLET (FP) PO SCH (22:03)
[2016-06-19] MEDS: THIAMINE HCL 100 MG TABLET (FP) PO SCH (22:03)
[2016-06-20] MEDS: TOPIRAMATE 25 MG TABLET (FP) PO SCH ×3 (06:38→21:25)
[2016-06-20] MEDS: PRENATAL VITAMINS W/ FOLIC ACID TABLET (FP) PO SCH (10:05)
[2016-06-20] MEDS: SERTRALINE HCL 50 MG TABLET (FP) PO SCH (10:05)
[2016-06-20] MEDS: RANITIDINE HCL 150 MG TABLET (FP) PO SCH ×2 (10:05→21:25)
[2016-06-20] MEDS: THIAMINE HCL 100 MG TABLET (FP) PO SCH (21:25)
[2016-06-20] MEDS: traZODone HCL 50 MG TABLET (FP) PO SCH (21:25)
[2016-06-21] MEDS: TOPIRAMATE 25 MG TABLET (FP) PO SCH ×3 (06:34→21:32)
[2016-06-21] MEDS: SERTRALINE HCL 50 MG TABLET (FP) PO SCH (09:53)
[2016-06-21] MEDS: RANITIDINE HCL 150 MG TABLET (FP) PO SCH ×2 (09:53→21:32)
[2016-06-21] MEDS: PRENATAL VITAMINS W/ FOLIC ACID TABLET (FP) PO SCH (09:53)
[2016-06-21] MEDS: THIAMINE HCL 100 MG TABLET (FP) PO SCH (21:32)
[2016-06-21] MEDS: traZODone HCL 50 MG TABLET (FP) PO SCH (21:32)
[2016-06-22] MEDS: TOPIRAMATE 25 MG TABLET (FP) PO SCH (06:03)
[2016-06-22 07:07] VITALS: BP 129/77; PULSE 68; TEMP 98
[2016-06-22] MEDS: RANITIDINE HCL 150 MG TABLET (FP) PO SCH (10:06)
[2016-06-22] MEDS: SERTRALINE HCL 50 MG TABLET (FP) PO SCH (10:06)
[2016-06-22] MEDS: PRENATAL VITAMINS W/ FOLIC ACID TABLET (FP) PO SCH (10:06)
--- NOTE | 2016-06-22 11:12 | PN ---
Psychiatric Progress Note Vital Signs: Vital Signs Period Temp Pulse Resp BP Sys/Hylton Pulse Ox Last 24 Hr 98.0 F 68 18-18 129/77 Date of Session: 06/22/16 Chief Complaint:: discharge visit HPI: Patient has addressed alcohol dependence comorbid Bipolar I disorder. ROS: Significant for a history of carpal tunnel syndrome,low back pain,benign prostatic hyperplasia (BPH),hypercholesterolemia and withdrawal-related seizures.Patient was previously on 3W for rehab but transferred to [facility] for evaluation s/p a fall. Now ambulating with a cane due to gait instability. Current Medications: Active Medications Generic Name Dose Route Start Last Admin Trade Name Freq PRN Reason Stop Dose Admin Acetaminophen 650 mg 06/15/16 18:35 Tylenol - PO Q4H PRN PAIN Al Hydroxide/Mg Hydroxide 30 ml 06/15/16 18:35 Mylanta Oral Suspension - PO Q6H PRN DYSPEPSIA Diphenhydramine HCl 50 mg 06/15/16 18:35 Benadryl - PO HSMR1 PRN INSOMNIA Eucalyptus/Menthol/Phenol/Sorbitol 1 each 06/15/16 18:35 Cepastat Lozenge - MM Q4H PRN SORE THROAT Hydroxyzine Pamoate 50 mg 06/15/16 18:35 Vistaril - PO Q4H PRN AGITATION Ibuprofen 400 mg 06/15/16 18:35 Motrin - PO Q6H PRN SEVERE PAIN Loperamide HCl 4 mg 06/15/16 18:35 Imodium - PO Q6H PRN DIARRHEA Magnesium Citrate 300 ml 06/15/16 18:35 Citroma - PO Q48H PRN CONSTIPATION Magnesium Hydroxide 30 ml 06/15/16 18:35 Milk Of Magnesia - PO DAILY PRN CONSTIPATION Multivit/Folic Acid/Iron 1 tab 06/16/16 10:00 06/22/16 10:06 Vitamins (Sjr) - PO 1 tab DAILY [facility] Administration Pseudoephedrine/Triprolidine 1 combo 06/15/16 18:35 Actifed - PO TID PRN NASAL CONGESTION Ranitidine HCl 150 mg 06/15/16 22:00 06/22/16 10:06 Zantac - PO 150 mg BID [facility] Administration Sertraline HCl 50 mg 06/16/16 10:00 01/23/17 10:06 Zoloft - PO 50 mg DAILY [facility] Administration Thiamine HCl 100 mg 06/15/16 22:00 06/21/16 21:32 Vitamin B1 - PO 100 mg HS [facility] Administration Topiramate 25 mg 06/16/16 14:00 06/22/16 06:03 Topamax - PO 25 mg TID [facility] Administration Trazodone HCl 100 mg 06/16/16 22:00 06/21/16 21:32 Desyrel - PO 100 mg HS [facility] Administration Current Side Effect: No Lab tests ordered: No Lab tests reviewed: Yes Provider note:: Patient has completed today his treatment and met his goals will continue to address his isues at the next level of care. He focued on importance of changing attitude for the utilization of supports to prevent relapses. Patient states he learned a lot through this program and verbalized his resolution to stay sober and adherent to his aftercare plans. Medications well tolerated, scripts provided for 30 days, he will follow up with his psychiatrist , patient is stable for discharge. Total face to face time:: 35 Mental Status Exam - Mental Status Exam Alert and Oriented to: Time, Place, Person Cognitive Function: Good Patient Appearance: Well Groomed Mood: Hopeful Affect: Appropriate, Mood Congruent Patient Behavior: Appropriate, Cooperative Speech Pattern: Clear, Appropriate Voice Loudness: Normal Thought Process: Intact, Goal Oriented Thought Disorder: Not Present Hallucinations: Denies Suicidal Ideation: Denies Homicidal Ideation: Denies Insight/Judgement: Fair Sleep: Fair Appetite: Fair Muscle strength/Tone: Normal Gait/Station: Normal Psychiatric Treatment Plan - Problem List (1) Bipolar disorder Current Visit: Yes Qualifiers: Active/Remission status: in partial remission Most recent bipolar episode type: depressed Qualified Code(s): F31.75 - Bipolar disorder, in partial remission, most recent episode depressed Comment: By history. (2) Alcohol dependence Current Visit: No
== END 2016-06-22 11:35 | disposition home or self-care (01) | DRG 772 ==
LOC: YASAS 15:46 → Y5N 18:06
PROVIDERS: ADMIT Psychiatry & Neurology Psychiatry; ATTEND Psychiatry & Neurology Psychiatry
PROC: HZ42ZZZ Group Counseling for Substance Abuse Treatment, Cognitive-Behavioral (ICD-10-PCS; principal; 2016-06-15)
DX: F10.20 Alcohol dependence, uncomplicated (principal); F31.75 Bipolar disorder, in partial remission, most recent episode depressed; N40.0 Benign prostatic hyperplasia without lower urinary tract symptoms; Z86.69 Personal history of other diseases of the nervous system and sense organs; M54.5 Low back pain; K21.9 Gastro-esophageal reflux disease without esophagitis; M62.81 Muscle weakness (generalized); M13.832 Other specified arthritis, left wrist; M13.831 Other specified arthritis, right wrist; M13.862 Other specified arthritis, left knee; M13.861 Other specified arthritis, right knee; M46.96 Unspecified inflammatory spondylopathy, lumbar region; Z59.0 Homelessness
CPT/HCPCS: 36415; 80053; 81003; 85027; 86593; 93005; 93010

== ENCOUNTER 2017-05-17 14:40 | Inpatient (IN) | payer OTHER ==
[2017-05-17 15:02] VITALS: BMI 32.1
--- NOTE | 2017-05-17 17:00 | HP ---
Admission ROS [facility] Chief Complaint: I WANT TO GO TO REHAB Allergies/Adverse Reactions: Allergies Allergy/AdvReac Type Severity Reaction Status Date / Time morphine Allergy Intermediate Rash Verified 05/17/17 15:50 History of Present Illness: 61 YEARS OLD MALE WITH LONG HISTORY OF ALCOHOL DEPENDENCE HAS HYPERTENSION, GERD , SEASONAL ALLEGY, CHRONIC LOWER BACK PAIN, EARLY STAGE OF CIRRHOSIS AND BIPOLAR II IS ADMITTED TO REHAB Exam Limitations: No Limitations - Ebola screening Have you traveled outside of the country in the last 21 days: No Have you had contact with anyone from an Ebola affected area: No Have you been sick,other than usual withdrawal symptoms: No Do you have a fever: No - Review of Systems Constitutional: No Symptoms Reported, Weight Stable EENT: reports: Blurred Vision (EYE GLASSES) Respiratory: reports: No Symptoms reported Cardiac: reports: No Symptoms Reported GI: reports: Indigestion : reports: No Symptoms Reported Musculoskeletal: reports: Back Pain ( X 10+ YEARES), Muscle Weakness (BOTH LEGS CANE) Integumentary: reports: No Symptoms Reported Neuro: reports: Seizure (X 3 YEARS LAST EPISODE 05/07/17) Endocrine: reports: No Symptoms Reported Hematology: reports: No Symptoms Reported Psychiatric: reports: Judgement Intact, Mood/Affect Appropiate (BIPOLAR II), Orientated x3 Other Systems: Reviewed and Negative Patient History - Patient Medical History Hx Anemia: No Hx Asthma: No Hx Chronic Obstructive Pulmonary Disease (COPD): No Hx Cancer: No Hx Cardiac Disorders: No Hx Congestive Heart Failure: No Hx Hypertension: Yes Hx Hypercholesterolemia: No Hx Pacemaker: No HX Cerebrovascular Accident: No Hx Seizures: Yes (X 3 YEARS ALCOHOL RELATERD TREATED WITH TOPAMAX) Hx Dementia: No Hx Diabetes: No Hx Gastrointestinal Disorders: Yes Hx Liver Disease: Yes (CIRRHOSIS OF EARLY STAGE) Hx Genitourinary Disorders: No Hx Sexually Transmitted Disorders: No Hx Renal Disease (ESRD): No Hx Thyroid Disease: No Hx Human Immunodeficiency Virus (HIV): No Hx Hepatitis C: No Hx Depression: No Hx Suicide Attempt: No Hx Bipolar Disorder: Yes Hx Schizophrenia: No - Patient Surgical History Past Surgical History: No Hx Neurologic Surgery: No Hx Cataract Extraction: No Hx Cardiac Surgery: No Hx Lung Surgery: No Hx Breast Surgery: No Hx Breast Biopsy: No Hx Abdominal Surgery: No Hx Appendectomy: No Hx Cholecystectomy: No Hx Genitourinary Surgery: No Hx Orthopedic Surgery: No - PPD History Previous Implant?: Yes Documented Results: Negative w/proof Implanted On Prior R Admission?: Yes Date: 05/29/16 Results: 0 mm PPD to be Administered?: Yes - Smoking Cessation Smoking history: Never smoked Have you smoked in the past 12 months: No Cigars Per Day: 0 Hx Chewing Tobacco Use: No Initiated information on smoking cessation: No - Substance & Tx. History Hx Alcohol Use: Yes Hx Substance Use: No Substance Use Type: Alcohol Hx Substance Use Treatment: Yes (05/2016 [facility] - Substances Abused Alcohol Route: Oral Frequency: Daily Amount used: 2-3 pintsVODKA Age of first use: 18 Date of Last Use: 05/07/17 Family Disease History - Family Disease History Family Disease History: Heart Disease: Brother (2013), Other: Father ( ) , Mother (mental illness) Admission Physical Exam S - Vital Signs Vital Signs: Vital Signs - 24 hr 05/17/17 15:00 Temperature 96.9 F L Pulse Rate 102 H Respiratory 18 Rate Blood Pressure 132/68 - Physical General Appearance: Yes: Appropriately Dressed, Obese HEENTM: Yes: Hearing grossly Normal, Normal ENT Inspection, Normocephalic, Normal Voice, Other (EYE GLASSES) Respiratory: Yes: Chest Non-Tender, Lungs Clear, Normal Breath Sounds, No Respiratory Distress, No Accessory Muscle Use Neck: Yes: Supple, Trachea in good position Breast: Yes: Breasts Symetrical Cardiology: Yes: Regular Rhythm, S1, S2, Tachycardia Abdominal: Yes: Normal Bowel Sounds, Non Tender, Flat Genitourinary: Yes: Within Normal Limits Back: Yes: Normal Inspection Musculoskeletal: Yes: Gait Steady (CANE), Back pain, Muscle weakness (BOTH LEGS) Extremities: Yes: Normal Range of Motion, Non-Tender, Other (BRUISES RIGHT INNER LEG) Neurological: Yes: Fully Oriented, Alert, Motor Strength 5/5 (CANE), Normal Response, Other (ANXIETY) Integumentary: Yes: Warm, Other (BRUISES RIGHT INNER LEG) Lymphatic: Yes: Within Normal Limits - Diagnostic (1) Bipolar II disorder Current Visit: Yes Status: Suspected (2) Alcohol dependence with uncomplicated withdrawal Current Visit: Yes Status: Acute (3) Seizure Current Visit: Yes Status: Chronic Comment: topamax (4) Use of cane as ambulatory aid Current Visit: Yes Status: Chronic Cleared for Admission [facility] - Detox or Rehab [facility] Level of Care: Observation Bed Detox Regimen/Protocol: Not Applicable Claeared for Rehab Admission: Yes [facility] Breath Alcohol Content Breath Alcohol Content: 0 Urine Drug Screen - Results Drug Screen Negative: No Urine Drug Screen Results: BZO-Benzodiazepines Inpatient Rehab Admission - Initial Determination Are CD services needed?: Yes Free of communicable disease: Yes Not in need of hospitalization: Yes - Rehab Admission Criteria Previous failed treatment: Yes Poor recovery environment: Yes Comorbidities: Yes Lacks judgement: No Patient is meeting Inpatient Rehab admission criteria:: Yes
[2017-05-17] MEDS ORDERED: MAG HYDROX/AL HYDROX/SIMETH 30 ML UNIT-DOSE CUP PO PRN (17:03)
[2017-05-17] MEDS ORDERED: MENTHOL/PHENOL 1 EACH UD MM PRN (17:03)
[2017-05-17] MEDS ORDERED: P-EPHED 60MG/TRIPROLIDI 2.5MG TABLET PO PRN (17:03)
[2017-05-17] MEDS ORDERED: LOPERAMIDE HCL 2 MG CAPSULE PO PRN (17:03)
[2017-05-17] MEDS ORDERED: MAGNESIUM CITRATE 300 ML BOTTLE PO PRN (17:03)
[2017-05-17] MEDS ORDERED: MAGNESIUM HYDROX 2400MG/30ML ORAL SUSPENSION 30 ML CUP PO PRN (17:03)
[2017-05-17] MEDS ORDERED: guaiFENesin/D-METHORPHAN HB 10 ML UNIT-DOSE CUPS PO PRN (17:03)
[2017-05-17] MEDS: RANITIDINE HCL 150 MG TABLET (FP) PO SCH (21:35)
[2017-05-17] MEDS ORDERED: TUBERCULIN PPD 5 TU/0.1ML VIAL ID ONE (21:36)
[2017-05-17] MEDS: THIAMINE HCL 100 MG TABLET (FP) PO SCH (21:36)
[2017-05-17] MEDS: TOPIRAMATE 25 MG TABLET (FP) PO SCH (21:37)
[2017-05-17] MEDS: FLUTICASONE PROP 0.05% 16 GM NASAL SPRAY NS PRN (21:37)
[2017-05-17] MEDS: NAPROXEN 500 MG TABLET (FP) PO PRN (21:39)
[2017-05-17 23:28] LABS: URINE APPEARANCE SLCLOUDY; URINE BILIRUBIN NEGATIVE (NEGATIVE); URINE BLOOD NEGATIVE (NEGATIVE); URINE COLOR AMBER; URINE GLUCOSE (UA) NEGATIVE (NEGATIVE); URINE KETONE NEGATIVE (NEGATIVE); URINE LEUK ESTERASE NEGATIVE (NEGATIVE); URINE NITRITE NEGATIVE (NEGATIVE); URINE PROTEIN NEGATIVE (NEGATIVE)
[2017-05-18] MEDS: ACETAMINOPHEN 325 MG TABLET (FP) PO PRN (05:15)
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
[2017-05-18 10:03] LABS: URINE LEUK ESTERASE Negative (NEGATIVE)
[2017-05-18] MEDS: PRENATAL VITAMINS W/ FOLIC ACID TABLET (FP) PO SCH (10:05)
[2017-05-18] MEDS: TOPIRAMATE 25 MG TABLET (FP) PO SCH ×2 (10:05→21:25)
[2017-05-18] MEDS: amLODIPine BESYLATE 10 MG TABLET (FP) PO SCH (10:05)
[2017-05-18] MEDS: RANITIDINE HCL 150 MG TABLET (FP) PO SCH ×2 (10:05→21:25)
[2017-05-18] MEDS: SERTRALINE HCL 50 MG TABLET (FP) PO SCH (10:07)
[2017-05-18 10:12] LABS: MCH 28.8 pg (25.7-33.7); MCHC 32.2 g/dl (32.0-35.9); MEAN CELL VOLUME 89.2 fl (80-96); MEAN PLT VOLUME 8.6 fl (7.5-11.1); PLATELET COUNT 150 K/MM3 (134-434); RDW 22.2 % (11.9-15.9); WHITE BLOOD COUNT 4.9 K/mm3 (4.0-10.0)
[2017-05-18 10:36] LABS: ALBUMIN 3.3 g/dl (3.4-5.0); ALK PHOS 170 U/L (45-117); ANION GAP 8 (8-16); BILIRUBIN,TOTAL 1.5 mg/dL (0.2-1.0); CALCIUM 8.3 mg/dL (8.5-10.1); CO2 26 mmol/L (21-32); GLUCOSE,RANDOM 88 mg/dL (74-106); SGOT/AST 82 U/L (15-37); SGPT/ALT 60 U/L (12-78); TOT PROT 6.8 g/dl (6.4-8.2)
[2017-05-18] MEDS: NAPROXEN 500 MG TABLET (FP) PO PRN (16:58)
[2017-05-18] MEDS: FERROUS SO4 325 MG TABLET (FP) PO SCH (16:58)
--- NOTE | 2017-05-18 18:17 | PN ---
S Progress Note Note: received nurse call that the patient has right leg swell needed to be seen right leg swell > left leg hydrochlorothiazide 12.5 mg x 1 now elevation of the right leg K+ 3.8 continue rehab
[2017-05-18] MEDS ORDERED: HYDROCHLOROTHIAZIDE 12.5 MG CAPSULE (FP) PO ONE (19:00)
[2017-05-18] MEDS ORDERED: BACLOFEN 10 MG TABLET (FP) PO ONE (19:00)
--- NOTE | 2017-05-18 19:03 | EKG ---
Test Reason : Blood Pressure : / mmHG Vent. Rate : 084 BPM Atrial Rate : 084 BPM P-R Int : 170 ms QRS Dur : 086 ms QT Int : 374 ms P-R-T Axes : 068 003 046 degrees QTc Int : 441 ms SINUS RHYTHM WITH OCCASIONAL PREMATURE VENTRICULAR COMPLEXES OTHERWISE NORMAL ECG WHEN COMPARED WITH ECG OF 15-JUN-2016 23:13, PREMATURE VENTRICULAR COMPLEXES ARE NOW PRESENT Confirmed by MD IVONNE, CATHERINE ([id number]) on 05/18/2017 7:03:25 PM Referred By: Confirmed By:CATHERINE CORONADO MD
[2017-05-18] MEDS: DOCUSATE SODIUM 100 MG CAPSULE (FP) PO SCH (21:25)
[2017-05-18] MEDS: SUVOREXANT 10 MG TABLET PO PRN (21:25)
[2017-05-18] MEDS: THIAMINE HCL 100 MG TABLET (FP) PO SCH (21:25)
[2017-05-18] MEDS: MINERAL OIL/PETROLAT/WATER TOPICAL CREAM 113 GM JAR TP SCH (21:26)
[2017-05-19] MEDS: ACETAMINOPHEN 325 MG TABLET (FP) PO PRN ×2 (05:15→14:00)
[2017-05-19] MEDS: FERROUS SO4 325 MG TABLET (FP) PO SCH ×3 (07:09→17:03)
[2017-05-19] MEDS: PRENATAL VITAMINS W/ FOLIC ACID TABLET (FP) PO SCH (10:24)
[2017-05-19] MEDS: SERTRALINE HCL 50 MG TABLET (FP) PO SCH (10:24)
[2017-05-19] MEDS: amLODIPine BESYLATE 10 MG TABLET (FP) PO SCH (10:24)
[2017-05-19] MEDS: RANITIDINE HCL 150 MG TABLET (FP) PO SCH ×2 (10:24→21:22)
[2017-05-19] MEDS: TOPIRAMATE 25 MG TABLET (FP) PO SCH ×2 (10:24→21:22)
[2017-05-19] MEDS: NAPROXEN 500 MG TABLET (FP) PO PRN (10:26)
[2017-05-19] MEDS ORDERED: COLLOIDAL OATMEAL 1 BAR EACH TP PRN (14:16)
--- NOTE | 2017-05-19 14:28 | PN ---
[facility] Progress Note (SOAP) Subjective: reviewedlabwork with humeraramón, patient c/o swelling right leg since withdrawal seizure Objective: 05/19/17 14:27 Vital Signs - 24 hr 05/18/17 05/19/17 05/19/17 18:17 00:30 03:30 Temperature Pulse Rate 89 Respiratory 18 18 Rate Blood Pressure 118/70 05/19/17 06:55 Temperature 97.6 F Pulse Rate 89 Respiratory 18 Rate Blood Pressure 129/75 Laboratory Tests 05/17/17 05/18/17 05/18/17 23:10 07:00 07:00 WBC 4.9 RBC 3.07 L D Hgb 8.8 L D Hct 27.4 L D MCV 89.2 MCH 28.8 MCHC 32.2 RDW 22.2 H D Plt Count 150 D MPV 8.6 Sodium 140 Potassium 3.8 Chloride 106 Carbon Dioxide 26 Anion Gap 8 BUN 22 H D Creatinine 1.0 Creat Clearance w eGFR > 60 Random Glucose 88 Calcium 8.3 L Total Bilirubin 1.5 H D AST 82 H D ALT 60 D Alkaline Phosphatase 170 H D Total Protein 6.8 Albumin 3.3 L Urine Color Lucy Urine Appearance Slcloudy Urine pH 5.0 Ur Specific [place] 1.028 Urine Protein Negative Urine Glucose (UA) Negative Urine Ketones Negative Urine Blood Negative Urine Nitrite Negative Urine Bilirubin Negative Urine Urobilinogen 2.0 Ur Leukocyte Esterase Negative RPR Titer 05/18/17 07:00 WBC RBC Hgb Hct MCV MCH MCHC RDW Plt Count MPV Sodium Potassium Chloride Carbon Dioxide Anion Gap BUN Creatinine Creat Clearance w eGFR Random Glucose Calcium Total Bilirubin AST ALT Alkaline Phosphatase Total Protein Albumin Urine Color Urine Appearance Urine pH Ur Specific [place] Urine Protein Urine Glucose (UA) Urine Ketones Urine Blood Urine Nitrite Urine Bilirubin Urine Urobilinogen Ur Leukocyte Esterase RPR Titer Nonreactive Assessment: 05/19/17 14:28 repeat labs, obtain cane as requested by patient, pain medications, elevate leg. follow up pcp when discharged. work up at [facility] post seizure was neg.
[2017-05-19] MEDS ORDERED: AMMONIUM LACTATE 12% LOTION 225 GM BOTTLE TP PRN (14:30)
[2017-05-19] MEDS: THIAMINE HCL 100 MG TABLET (FP) PO SCH (21:21)
[2017-05-19] MEDS: MINERAL OIL/PETROLAT/WATER TOPICAL CREAM 113 GM JAR TP SCH (21:22)
[2017-05-19] MEDS: DOCUSATE SODIUM 100 MG CAPSULE (FP) PO SCH (21:22)
[2017-05-19] MEDS: FLUTICASONE PROP 0.05% 16 GM NASAL SPRAY NS PRN (21:22)
[2017-05-19] MEDS: SUVOREXANT 10 MG TABLET PO PRN (21:23)
[2017-05-20] MEDS: ACETAMINOPHEN 325 MG TABLET (FP) PO PRN (02:56)
[2017-05-20] MEDS: FERROUS SO4 325 MG TABLET (FP) PO SCH ×3 (07:11→17:02)
[2017-05-20 10:00] LABS: BASO % 1.3 % (0-2.0); EOS % 3.7 % (0-4.5); MCH 28.3 pg (25.7-33.7); MCHC 31.8 g/dl (32.0-35.9); MEAN CELL VOLUME 89.1 fl (80-96); MEAN PLT VOLUME 8.7 fl (7.5-11.1); NEUT % 57.8 % (42.8-82.8); PLATELET COUNT 183 K/MM3 (134-434); WHITE BLOOD COUNT 6.3 K/mm3 (4.0-10.0)
[2017-05-20 10:06] LABS: ALBUMIN 3.3 g/dl (3.4-5.0); ANION GAP 9 (8-16); CALCIUM 8.6 mg/dL (8.5-10.1); CO2 23 mmol/L (21-32); GLUCOSE,RANDOM 110 mg/dL (74-106)
[2017-05-20 10:09] LABS: ALK PHOS 164 U/L (45-117); BILIRUBIN,TOTAL 1.5 mg/dL (0.2-1.0); SGOT/AST 59 U/L (15-37); SGPT/ALT 48 U/L (12-78); TOT PROT 6.8 g/dl (6.4-8.2)
[2017-05-20] MEDS: PRENATAL VITAMINS W/ FOLIC ACID TABLET (FP) PO SCH (10:28)
[2017-05-20] MEDS: amLODIPine BESYLATE 10 MG TABLET (FP) PO SCH (10:29)
[2017-05-20] MEDS: TOPIRAMATE 25 MG TABLET (FP) PO SCH ×2 (10:29→22:25)
[2017-05-20] MEDS: RANITIDINE HCL 150 MG TABLET (FP) PO SCH ×2 (10:29→22:25)
[2017-05-20] MEDS: SERTRALINE HCL 50 MG TABLET (FP) PO SCH (10:29)
[2017-05-20] MEDS: NAPROXEN 500 MG TABLET (FP) PO PRN (10:30)
[2017-05-20 11:13] LABS: INR 1.06 (0.82-1.09)
--- NOTE | 2017-05-20 12:57 | PN ---
Progress Note (short form) - Note Progress Note: c/o worsening lower leg pain and swelling more on the right, especially with walking. denies orthopnea, dysuria, hematuria, chest pain, sob, cough, dyspnea PE: gen: NAD HEENT: emoi, alfonso, -lad/thyromegaly CV: s1, s2, without murmurs lungs: CTAB Ext: 1+ pitting edema left leg, 2+ pitting edema in right leg, 2+ b/l DP and TP pulses, <2sec capil refill, left leg ttp anteriorly, mariana's on right leg is negative. from at b/l knees. flat hyperpigmented lesion on medial knee, extending to lower leg and lower medial thigh. skin intact, no erythma or warmth in right leg Plan: continue norvasc 10mg po daily, add lasix 20mg po today to decrease le edema and consider continuing tomorrow, repeat BMP to monitor cr and electrolytes pt was on hctz in the past but had severe hypokalemia and it was discontinued by his PCP echo 05/2016 wnl Plan discussed with Dr. Estrella Problem List - Problems (1) Alcohol dependence Code(s): F10.20 - ALCOHOL DEPENDENCE, UNCOMPLICATED (2) Hyperlipidemia Code(s): E78.5 - HYPERLIPIDEMIA, UNSPECIFIED (3) GERD (gastroesophageal reflux disease) Code(s): K21.9 - GASTRO-ESOPHAGEAL REFLUX DISEASE WITHOUT ESOPHAGITIS (4) Use of cane as ambulatory aid Code(s): R26.2 - DIFFICULTY IN WALKING, NOT ELSEWHERE CLASSIFIED (5) Alcohol dependence Code(s): F10.20 - ALCOHOL DEPENDENCE, UNCOMPLICATED (6) Arthritis Code(s): M19.90 - UNSPECIFIED OSTEOARTHRITIS, UNSPECIFIED SITE (7) Hypertension Code(s): I10 - ESSENTIAL (PRIMARY) HYPERTENSION Qualifiers: Hypertension type: essential hypertension Qualified Code(s): I10 - Essential (primary) hypertension
[2017-05-20] MEDS ORDERED: FUROSEMIDE 20 MG TABLET (FP) PO ONE (15:05)
[2017-05-20] MEDS: DOCUSATE SODIUM 100 MG CAPSULE (FP) PO SCH (22:25)
[2017-05-20] MEDS: THIAMINE HCL 100 MG TABLET (FP) PO SCH (22:25)
[2017-05-20] MEDS: MINERAL OIL/PETROLAT/WATER TOPICAL CREAM 113 GM JAR TP SCH (22:26)
[2017-05-20] MEDS: FLUTICASONE PROP 0.05% 16 GM NASAL SPRAY NS PRN (22:28)
[2017-05-20] MEDS: SUVOREXANT 10 MG TABLET PO PRN (22:31)
[2017-05-21] MEDS: NAPROXEN 500 MG TABLET (FP) PO PRN (03:39)
[2017-05-21] MEDS: FLUTICASONE PROP 0.05% 16 GM NASAL SPRAY NS PRN (06:53)
[2017-05-21] MEDS: FERROUS SO4 325 MG TABLET (FP) PO SCH ×3 (07:57→16:50)
[2017-05-21] MEDS: TOPIRAMATE 25 MG TABLET (FP) PO SCH ×2 (10:25→21:31)
[2017-05-21] MEDS: PRENATAL VITAMINS W/ FOLIC ACID TABLET (FP) PO SCH (10:25)
[2017-05-21] MEDS: amLODIPine BESYLATE 10 MG TABLET (FP) PO SCH (10:25)
[2017-05-21] MEDS: SERTRALINE HCL 50 MG TABLET (FP) PO SCH (10:25)
[2017-05-21] MEDS: RANITIDINE HCL 150 MG TABLET (FP) PO SCH ×2 (10:25→21:31)
[2017-05-21] MEDS: ACETAMINOPHEN 325 MG TABLET (FP) PO PRN (10:27)
[2017-05-21] MEDS: THIAMINE HCL 100 MG TABLET (FP) PO SCH (21:31)
[2017-05-21] MEDS: DOCUSATE SODIUM 100 MG CAPSULE (FP) PO SCH (21:31)
[2017-05-21] MEDS: MINERAL OIL/PETROLAT/WATER TOPICAL CREAM 113 GM JAR TP SCH (21:32)
[2017-05-22] MEDS: ACETAMINOPHEN 325 MG TABLET (FP) PO PRN (03:04)
[2017-05-22] MEDS: FERROUS SO4 325 MG TABLET (FP) PO SCH ×3 (07:05→16:53)
[2017-05-22] MEDS: PRENATAL VITAMINS W/ FOLIC ACID TABLET (FP) PO SCH (10:25)
[2017-05-22] MEDS: SERTRALINE HCL 50 MG TABLET (FP) PO SCH (10:25)
[2017-05-22] MEDS: FLUTICASONE PROP 0.05% 16 GM NASAL SPRAY NS PRN (10:25)
[2017-05-22] MEDS: RANITIDINE HCL 150 MG TABLET (FP) PO SCH ×2 (10:25→21:27)
[2017-05-22] MEDS: amLODIPine BESYLATE 10 MG TABLET (FP) PO SCH (10:26)
[2017-05-22] MEDS: TOPIRAMATE 25 MG TABLET (FP) PO SCH ×2 (10:26→21:27)
[2017-05-22] MEDS: BACITRACIN 0.9 GM PACKET TP SCH ×2 (11:51→21:27)
[2017-05-22] MEDS: DOCUSATE SODIUM 100 MG CAPSULE (FP) PO SCH (21:27)
[2017-05-22] MEDS: THIAMINE HCL 100 MG TABLET (FP) PO SCH (21:27)
[2017-05-22] MEDS: MINERAL OIL/PETROLAT/WATER TOPICAL CREAM 113 GM JAR TP SCH (21:28)
[2017-05-22] MEDS: NAPROXEN 500 MG TABLET (FP) PO PRN (23:39)
[2017-05-23] MEDS: FERROUS SO4 325 MG TABLET (FP) PO SCH ×3 (07:06→17:44)
[2017-05-23] MEDS: RANITIDINE HCL 150 MG TABLET (FP) PO SCH ×2 (10:07→21:30)
[2017-05-23] MEDS: amLODIPine BESYLATE 10 MG TABLET (FP) PO SCH (10:07)
[2017-05-23] MEDS: SERTRALINE HCL 50 MG TABLET (FP) PO SCH (10:07)
[2017-05-23] MEDS: TOPIRAMATE 25 MG TABLET (FP) PO SCH ×2 (10:07→21:30)
[2017-05-23] MEDS: PRENATAL VITAMINS W/ FOLIC ACID TABLET (FP) PO SCH (10:07)
[2017-05-23] MEDS: BACITRACIN 0.9 GM PACKET TP SCH ×2 (10:07→21:30)
[2017-05-23] MEDS: MINERAL OIL/PETROLAT/WATER TOPICAL CREAM 113 GM JAR TP SCH (21:30)
[2017-05-23] MEDS: DOCUSATE SODIUM 100 MG CAPSULE (FP) PO SCH (21:30)
[2017-05-23] MEDS: THIAMINE HCL 100 MG TABLET (FP) PO SCH (21:30)
[2017-05-24] MEDS: NAPROXEN 500 MG TABLET (FP) PO PRN ×2 (01:34→21:38)
[2017-05-24] MEDS: FLUTICASONE PROP 0.05% 16 GM NASAL SPRAY NS PRN (07:01)
[2017-05-24] MEDS: FERROUS SO4 325 MG TABLET (FP) PO SCH ×3 (07:30→17:40)
[2017-05-24] MEDS: SERTRALINE HCL 50 MG TABLET (FP) PO SCH (10:26)
[2017-05-24] MEDS: RANITIDINE HCL 150 MG TABLET (FP) PO SCH ×2 (10:26→21:38)
[2017-05-24] MEDS: PRENATAL VITAMINS W/ FOLIC ACID TABLET (FP) PO SCH (10:26)
[2017-05-24] MEDS: TOPIRAMATE 25 MG TABLET (FP) PO SCH ×2 (10:26→21:38)
[2017-05-24] MEDS: BACITRACIN 0.9 GM PACKET TP SCH ×2 (10:26→21:38)
[2017-05-24] MEDS: amLODIPine BESYLATE 10 MG TABLET (FP) PO SCH (10:27)
[2017-05-24] MEDS: ACETAMINOPHEN 325 MG TABLET (FP) PO PRN (20:15)
[2017-05-24] MEDS: DOCUSATE SODIUM 100 MG CAPSULE (FP) PO SCH (21:38)
[2017-05-24] MEDS: THIAMINE HCL 100 MG TABLET (FP) PO SCH (21:39)
[2017-05-24] MEDS: MINERAL OIL/PETROLAT/WATER TOPICAL CREAM 113 GM JAR TP SCH (21:40)
[2017-05-25] MEDS: FERROUS SO4 325 MG TABLET (FP) PO SCH ×3 (07:23→17:35)
[2017-05-25] MEDS: RANITIDINE HCL 150 MG TABLET (FP) PO SCH ×2 (10:16→21:43)
[2017-05-25] MEDS: SERTRALINE HCL 50 MG TABLET (FP) PO SCH (10:16)
[2017-05-25] MEDS: BACITRACIN 0.9 GM PACKET TP SCH ×2 (10:16→21:43)
[2017-05-25] MEDS: TOPIRAMATE 25 MG TABLET (FP) PO SCH ×2 (10:16→21:43)
[2017-05-25] MEDS: PRENATAL VITAMINS W/ FOLIC ACID TABLET (FP) PO SCH (10:16)
[2017-05-25] MEDS: amLODIPine BESYLATE 10 MG TABLET (FP) PO SCH (10:17)
[2017-05-25] MEDS: FLUTICASONE PROP 0.05% 16 GM NASAL SPRAY NS PRN (10:17)
[2017-05-25] MEDS: THIAMINE HCL 100 MG TABLET (FP) PO SCH (21:43)
[2017-05-25] MEDS: DOCUSATE SODIUM 100 MG CAPSULE (FP) PO SCH (21:43)
[2017-05-25] MEDS: MINERAL OIL/PETROLAT/WATER TOPICAL CREAM 113 GM JAR TP SCH (21:44)
[2017-05-25] MEDS: hydrOXYzine PAMOATE 50 MG CAPSULE (FP) PO PRN (21:47)
[2017-05-26] MEDS: NAPROXEN 500 MG TABLET (FP) PO PRN (03:34)
[2017-05-26] MEDS: hydrOXYzine PAMOATE 50 MG CAPSULE (FP) PO PRN ×2 (03:34→21:34)
[2017-05-26 06:58] VITALS: TEMP 97.4
[2017-05-26] MEDS: FERROUS SO4 325 MG TABLET (FP) PO SCH ×3 (07:07→16:57)
[2017-05-26] MEDS: amLODIPine BESYLATE 10 MG TABLET (FP) PO SCH (10:19)
[2017-05-26] MEDS: TOPIRAMATE 25 MG TABLET (FP) PO SCH ×2 (10:19→21:33)
[2017-05-26] MEDS: PRENATAL VITAMINS W/ FOLIC ACID TABLET (FP) PO SCH (10:19)
[2017-05-26] MEDS: FLUTICASONE PROP 0.05% 16 GM NASAL SPRAY NS PRN (10:19)
[2017-05-26] MEDS: SERTRALINE HCL 50 MG TABLET (FP) PO SCH (10:19)
[2017-05-26] MEDS: RANITIDINE HCL 150 MG TABLET (FP) PO SCH ×2 (10:19→21:33)
[2017-05-26] MEDS: BACITRACIN 0.9 GM PACKET TP SCH ×2 (10:19→21:33)
[2017-05-26] MEDS: THIAMINE HCL 100 MG TABLET (FP) PO SCH (21:33)
[2017-05-26] MEDS: MINERAL OIL/PETROLAT/WATER TOPICAL CREAM 113 GM JAR TP SCH (21:33)
[2017-05-26] MEDS: DOCUSATE SODIUM 100 MG CAPSULE (FP) PO SCH (21:33)
[2017-05-27] MEDS: ACETAMINOPHEN 325 MG TABLET (FP) PO PRN (03:33)
[2017-05-27 07:01] VITALS: BP 147/76; PULSE 84
[2017-05-27] MEDS: FERROUS SO4 325 MG TABLET (FP) PO SCH (07:19)
--- NOTE | 2017-05-27 09:44 | PN ---
[facility] Progress Note (SOAP) Subjective: c/o constipation and rectal bleeding since morning this morning, brought in toilet tissue to show me. BRB upon wiping and while straining. has been having loose stools but feels that there is a "hard part" of the stool that is "stuck" which the watery stool is bypassing. a/w generalized weakness and LLQ abdominal pain, and poor appetite for one day. denies chest pain, dizziness, palpitations, cough, fever, lightheadedness. PE: Lungs: CTAB CV: s1, s2, rrr, no murmurs Abd: nd, tenderness in left lower quadrant and left upper quadrant, -ritter's, + bowel sounds in all four quadrants. no cva tenderness ext: no edema Plan: transfer to ED for further evaluation of rectal bleeding
[2017-05-27] MEDS: TOPIRAMATE 25 MG TABLET (FP) PO SCH (10:30)
[2017-05-27] MEDS: amLODIPine BESYLATE 10 MG TABLET (FP) PO SCH (10:30)
[2017-05-27] MEDS: RANITIDINE HCL 150 MG TABLET (FP) PO SCH (10:30)
[2017-05-27] MEDS: PRENATAL VITAMINS W/ FOLIC ACID TABLET (FP) PO SCH (10:30)
[2017-05-27] MEDS: SERTRALINE HCL 50 MG TABLET (FP) PO SCH (10:30)
[2017-05-27] MEDS: BACITRACIN 0.9 GM PACKET TP SCH (10:30)
--- NOTE | 2017-05-27 11:32 | PN ---
Psychiatric Progress Note Vital Signs: Vital Signs Period Temp Pulse Resp BP Sys/[place] Pulse Ox Last 24 Hr 97.4 F 84 18-20 147/76 Date of Session: 05/27/17 Chief Complaint:: discharge visit HPI: Patient has addressed alcohol dependence comorbid Bipolar II disorder, alcohol,induced sleep disorder. ROS: Seizure d/o, HTN, GERD medically managed. Current Medications: Active Medications Generic Name Dose Route Start Last Admin Trade Name Freq PRN Reason Stop Dose Admin Acetaminophen 650 mg 05/17/17 17:03 05/27/17 03:33 Tylenol - PO 650 mg Q4H PRN Administration PAIN Al Hydroxide/Mg Hydroxide 30 ml 05/17/17 17:03 05/27/17 03:34 Mylanta Oral Suspension - PO 30 ml Q6H PRN Administration DYSPEPSIA Amlodipine Besylate 10 mg 05/18/17 10:00 05/26/17 10:19 Norvasc - PO 10 mg DAILY MOSHE Administration Bacitracin 0.9 gm 05/22/17 11:15 05/26/17 21:33 Bacitracin - TP 0.9 gm BID MOSHE Administration Colloidal Oatmeal 1 applic 05/19/17 14:16 05/19/17 17:04 Aveeno Soap - TP 1 applic DAILY PRN Administration HYGEINE Docusate Sodium 300 mg 05/18/17 22:00 05/26/17 21:33 Colace - PO 300 mg HS MOSHE Administration Eucalyptus/Menthol/Phenol/Sorbitol 1 each 05/17/17 17:03 Cepastat Lozenge - MM Q4H PRN SORE THROAT Ferrous Sulfate 325 mg 05/18/17 17:30 05/27/17 07:19 Feosol - PO 325 mg TIDCM MOSHE Administration Fluticasone Propionate 1 spray 05/17/17 17:04 05/26/17 10:19 Flonase - NS 1 spr DAILY PRN Administration NASAL CONGESTION Guaifenesin 10 ml 05/17/17 17:03 Robitussin Dm - PO Q6H PRN COUGH Hydroxyzine Pamoate 50 mg 05/25/17 03:37 05/26/17 21:34 Vistaril - PO 50 mg Q6H PRN Administration FOR ITCHING Lactic Acid 1 applic 05/19/17 14:30 Lac-Hydrin 12 TP BID PRN DRY SKIN Loperamide HCl 4 mg 05/17/17 17:03 Imodium - PO Q6H PRN DIARRHEA Magnesium Citrate 300 ml 05/17/17 17:03 Citroma - PO Q48H PRN CONSTIPATION Magnesium Hydroxide 30 ml 05/17/17 17:03 Milk Of Magnesia - PO DAILY PRN CONSTIPATION Multi-Ingredient Lotion 1 applic 05/18/17 22:00 05/26/17 21:33 Eucerin (Small Jar) - TP Not Given HS MOSHE Naproxen 500 mg 05/17/17 17:06 05/26/17 03:34 Naprosyn - PO 500 mg BID PRN Administration BACK PAIN Multivit/Folic Acid/Iron 1 tab 05/18/17 10:00 05/26/17 10:19 Vitamins (Sjr) - PO 1 tab DAILY MOSHE Administration Pseudoephedrine/Triprolidine 1 combo 05/17/17 17:03 Actifed - PO TID PRN NASAL CONGESTION Ranitidine HCl 150 mg 05/17/17 22:00 05/26/17 21:33 Zantac - PO 150 mg BID MOSHE Administration Sertraline HCl 50 mg 05/18/17 10:00 05/26/17 10:19 Zoloft - PO 50 mg DAILY MOSHE Administration Thiamine HCl 100 mg 05/17/17 22:00 05/26/17 21:33 Vitamin B1 - PO 100 mg HS MOSHE Administration Topiramate 25 mg 05/17/17 22:00 05/26/17 21:33 Topamax - PO 25 mg BID MOSHE Administration Current Side Effect: No Lab tests ordered: No Lab tests reviewed: Yes Provider note:: Patient has completed today his treatment and met his goals, will contineu to address his issues at [facility] outpatient treatment program. He understands the negative consequences of his drinking over major life areas including his physical and mental health and verbalized his decision to continue maintain abstinence , he continues to find Zoloft has been effective in terms of mood improvement and anxiety reduction, Rx provided, patient is stable for discharge today. Total face to face time:: 15 Mental Status Exam - Mental Status Exam Alert and Oriented to: Time, Place, Person Cognitive Function: Good Patient Appearance: Well Groomed Mood: Hopeful Affect: Appropriate, Mood Congruent Patient Behavior: Appropriate, Cooperative Speech Pattern: Clear, Appropriate Voice Loudness: Normal Thought Process: Intact, Goal Oriented Thought Disorder: Not Present Hallucinations: Denies Suicidal Ideation: Denies Homicidal Ideation: Denies Insight/Judgement: Fair Sleep: Fair Appetite: Fair Muscle strength/Tone: Normal Psychiatric Treatment Plan - Problem List (1) Alcohol dependence Current Visit: Yes (2) Alcohol-induced sleep disorder Current Visit: Yes (3) Alcohol dependence Current Visit: No (4) Hypertension Current Visit: No Qualifiers: Hypertension type: essential hypertension Qualified Code(s): I10 - Essential (primary) hypertension (5) Bipolar disorder Current Visit: No Qualifiers: Active/Remission status: in partial remission Most recent bipolar episode type: depressed Qualified Code(s): F31.75 - Bipolar disorder, in partial remission, most recent episode depressed Comment: By history.
== END 2017-05-27 11:15 | disposition home or self-care (01) | DRG 772 ==
LOC: YASAS 14:40 → Y5N 18:36
PROVIDERS: ADMIT Psychiatry & Neurology Psychiatry; ATTEND Psychiatry & Neurology Psychiatry
PROC: HZ42ZZZ Group Counseling for Substance Abuse Treatment, Cognitive-Behavioral (ICD-10-PCS; principal; 2017-05-17)
DX: F10.280 Alcohol dependence with alcohol-induced anxiety disorder (principal); F10.282 Alcohol dependence with alcohol-induced sleep disorder; F31.75 Bipolar disorder, in partial remission, most recent episode depressed; F31.81 Bipolar II disorder; I10 Essential (primary) hypertension; E78.5 Hyperlipidemia, unspecified; K21.9 Gastro-esophageal reflux disease without esophagitis; M19.90 Unspecified osteoarthritis, unspecified site; R00.0 Tachycardia, unspecified; N40.0 Benign prostatic hyperplasia without lower urinary tract symptoms; G40.909 Epilepsy, unspecified, not intractable, without status epilepticus; K74.60 Unspecified cirrhosis of liver; M62.81 Muscle weakness (generalized); M79.89 Other specified soft tissue disorders; R26.2 Difficulty in walking, not elsewhere classified; E66.9 Obesity, unspecified; Z68.32 Body mass index [BMI] 32.0-32.9, adult; Z99.89 Dependence on other enabling machines and devices
CPT/HCPCS: 36415; 80053; 81003; 85025; 85027; 85610; 86593; 93005; 93010; J0475